=== PATIENT | male | born 1960 | race Caucasian/White ===

== ENCOUNTER → 2021-10-17 | Outpatient (CLI) | payer MEDICAID, SELFPAY ==
[2021-10-17 15:29] LABS: Absolute Neutrophil Count 3.3 X10^3/uL (2.0-7.7); Basophil# 0.03 X10^3/uL; Basophil% 0.6 % (0-1); Eosinophil# 0.15 X10^3/uL; Hematocrit 44.3 % (40-54); Lymphocyte % 22.1 % (19-41); Mean Corp Hgb Conc 33.9 g/dL (32-36); Mean Corpuscular Hgb 30.7 pg (27.0-32.0); Mean Corpuscular Volume 90.8 fL (80-94); Mean Platelet Vol. 9.7 fl (6.2-12.0); NRBC Flagged by Analyzer 0.4 % (0-5); Neutrophil # 3.28 X10^3/uL (2.7-7.7); Neutrophil % 66.1 % (47-70); POSITIVE COUNT YES; Platelet Count 79 K/mm3 (150-450); RBC Distribution Width CV 13.1 % (11.6-14.6); RBC Distribution Width SD 43.2 fl (35.1-43.9); Red Blood Count 4.88 M/mm3 (4.6-6.2)
[2021-10-17 15:37] LABS: Differential Indicated SCAN CRITERIA MET
[2021-10-17 15:44] LABS: Hemoglobin A1c 6.5 % (3.8-5.6)
[2021-10-17 16:04] LABS: ALB/GLOB Ratio 0.6 RATIO (0.9-2.4); AST(SGOT) 94 U/L (15-37); Alanine Aminotransfer ALT/SGPT 137 U/L (16-61); Albumin, Serum 2.9 g/dL (3.2-5.0); Alkaline Phosphatase 125 U/L (45-117); Anion Gap 4 (5-15); BUN 12 mg/dL (7-18); BUN/Creat Ratio 18.2 RATIO (10-20); Calcium,Total 8.7 mg/dL (8.5-10.1); Chloride 109 mmol/L (98-107); Cholesterol 114 mg/dL (200); Creatinine, Serum 0.66 mg/dL (0.70-1.30); EST Glomerular Filtration Rate 132 mL/min (>60); Est Glom Filt Rate - Afr Amer 159 mL/min (>60); Free T3 2.7 pg/mL (2.18-3.98); Globulin 4.8 g/dL (2.2-4.2); Glucose 206 mg/dL (74-106); High Density Lipoprotein 60 mg/dL; PSA,Total - Annual Screen 0.08 ng/mL (0.00-4.00); Potassium 4.1 mmol/L (3.5-5.1); Protein, Total 7.7 g/dL (6.4-8.2); Sodium Level 139 mmol/L (136-145); T4 Free Direct 1.06 ng/dL (0.76-1.46); Thyroid Stim Hormone (TSH) 5.29 uIU/mL (0.358-3.74); Triglycerides 68 mg/dL; Very Low Density Lipoprotein 14 mg/dL (5-40)
[2021-10-17 16:07] LABS: Platelet Estimate MOD DEC (ADEQ); Red Cell Morphology NORM C+C NORMAL (NORM C&C)
[2021-10-17 16:17] LABS: Hepatitis C Antibody Preliminary Reactive (Nonreactive); Vitamin D,25 Hydroxy 17.6 ng/mL
[2021-10-22 14:10] LABS: HCV Quant. RNA PCR 1010000 IU/mL (.)
[2021-10-22 16:02] LABS: HCV log 10 6.004 (.)
== END | disposition home or self-care (01) ==
PROVIDERS: Visit Provider Internal Medicine
DX: B19.20 Unspecified viral hepatitis C without hepatic coma (principal); K21.9 Gastro-esophageal reflux disease without esophagitis; F10.10 Alcohol abuse, uncomplicated; I10 Essential (primary) hypertension; Z13.220 Encounter for screening for lipoid disorders; Z13.1 Encounter for screening for diabetes mellitus; Z12.5 Encounter for screening for malignant neoplasm of prostate
CPT/HCPCS: 84153; 36415; 80053; 80061; 82306; 83036; 83735; 84439; 84443; 84481; 85025; 86803; 87522; 87902; G0103

== ENCOUNTER → 2021-12-12 | Outpatient (CLI) | payer MEDICAID, SELFPAY ==
[2021-12-12 11:16] LABS: Erythrocyte Sedimentation Rate 17 mm/hr (0-20)
[2021-12-12 11:17] LABS: Hemoglobin A1c 6.6 % (3.8-5.6)
[2021-12-12 11:20] LABS: Absolute Lymphocyte Count 0.99 X10^3/uL (0.83-4.51); Absolute Neutrophil Count 2.7 X10^3/uL (2.0-7.7); Basophil# 0.04 X10^3/uL; Eosinophil# 0.09 X10^3/uL; Eosinophils% 2.1 % (0-5); Hemoglobin 14.2 g/dL (13.0-16.5); Lymphocyte # 0.99 X10^3/ul (0.83-4.51); Lymphocyte % 23.5 % (19-41); Mean Corp Hgb Conc 34.6 g/dL (32-36); Mean Corpuscular Hgb 31.3 pg (27.0-32.0); Mean Corpuscular Volume 90.3 fL (80-94); Mean Platelet Vol. 9.7 fl (6.2-12.0); Monocyte# 0.41 X10^3/uL; Monocyte% 9.7 % (0-10); NRBC Flagged by Analyzer 0 % (0-5); Neutrophil # 2.66 X10^3/uL (2.7-7.7); Neutrophil % 63.2 % (47-70); POSITIVE COUNT YES; Platelet Count 80 K/mm3 (150-450); RBC Distribution Width CV 14.1 % (11.6-14.6); RBC Distribution Width SD 46.6 fl (35.1-43.9); Red Blood Count 4.54 M/mm3 (4.6-6.2); White Blood Count 4.2 K/mm3 (4.4-11.0)
[2021-12-12 11:27] LABS: International Normalized Ratio 1.1
[2021-12-12 11:38] LABS: ALB/GLOB Ratio 0.6 RATIO (0.9-2.4); AST(SGOT) 63 U/L (15-37); Alanine Aminotransfer ALT/SGPT 106 U/L (16-61); Albumin, Serum 2.9 g/dL (3.2-5.0); Alkaline Phosphatase 147 U/L (45-117); Anion Gap 2 (5-15); BUN 9 mg/dL (7-18); BUN/Creat Ratio 14.9 RATIO (10-20); CRP < 2.90 mg/L (0.0-3.0); Calcium,Total 8.1 mg/dL (8.5-10.1); Chloride 112 mmol/L (98-107); EST Glomerular Filtration Rate 146 mL/min (>60); Est Glom Filt Rate - Afr Amer 176 mL/min (>60); Ferritin 325 ng/mL (26-388); Globulin 4.6 g/dL (2.2-4.2); Glucose 170 mg/dL (74-106); LDH 191 U/L (87-241); Potassium 4.1 mmol/L (3.5-5.1); Protein, Total 7.5 g/dL (6.4-8.2); Sodium Level 141 mmol/L (136-145)
[2021-12-12 11:59] LABS: HIV - WCH Non-Reactive (Nonreactive)
[2021-12-13 14:08] LABS: Anti-Centromere B Ab <0.2 AI (0.0-0.9); Anti-Chromatin <0.2 AI (0.0-0.9); Anti-Jo <0.2 AI (0.0-0.9); Anti-Scleroderma-70 AB <0.2 AI (0.0-0.9); RNP Ab <0.2 AI (0.0-0.9); SJOGREN'S Anti-SS-A test < 0.2 AI (0.0-0.9); SJOGREN'S Anti-SS-B test < 0.2 AI (0.0-0.9); Smith Ab <0.2 AI (0.0-0.9)
[2021-12-13 18:33] LABS: Anti-Mitochondrial AB <20.0 Units (0.0-20.0); Anti-dsDNA Ab 3 IU/mL (0-9)
== END | disposition home or self-care (01) ==
LOC: LAB 10:23
PROVIDERS: PCP Internal Medicine; Visit Provider Internal Medicine Gastroenterology
DX: B19.20 Unspecified viral hepatitis C without hepatic coma (principal); K76.9 Liver disease, unspecified
CPT/HCPCS: 36415; 80053; 80074; 82105; 82140; 82164; 82390; 82525; 82728; 83010; 83036; 83516; 83615; 85025; 85610; 85652; 86140; 86225; 86235; 86256; 86703

== ENCOUNTER → 2021-12-19 | Outpatient (CLI) | payer MEDICAID, SELFPAY ==
--- NOTE | 2021-12-19 08:22 | US_ITS ---
STUDY: ABDOMINAL ULTRASOUND - RIGHT UPPER QUADRANT REASON FOR VISIT: Male, 61 years old Liver disease -- HEP C TECHNIQUE: Ultrasound evaluation of the right upper quadrant was performed with real-time and static parks-scale imaging. TECHNICAL QUALITY: Adequate. COMPARISON: None. FINDINGS: Liver: The liver is enlarged and measures 21.2 cm. There is increased echogenicity consistent with fatty infiltration. The bile ducts are within normal limits. There is hepatic color flow. The direction of portal flow is hepatopetal. There is no demonstrated mass lesion. Gallbladder: Normal distended gallbladder. The gallbladder wall measures 3 mm. There is a negative sonographic Argueta''s sign. There is no pericholecystic fluid. There are multiple echogenic structures within the gallbladder, consistent with multiple gallstones. Common Bile Duct (C.B.D.): The common bile duct measures 6.1 mm. Pancreas: Normal size of the head, body and tail of the pancreas. There is normal echogenicity of the pancreas. There is no demonstrated pancreatic mass or cyst. Right Kidney: Normal size of the right kidney. The right kidney measures 12.5 cm x 5.9 cm x 4.7 cm. Normal renal cortex. The right cortex measures 1.6 cm. There is no demonstrated renal mass or cyst. There is no right hydronephrosis. US/Abdomen Limited IMPRESSION: Hepatomegaly and fatty infiltration of the liver. Multiple gallstones. Electronically Signed: Davi Malik MD at 15:43 EDT ,
--- NOTE | 2021-12-19 08:22 | US_ITS ---
STUDY: ABDOMINAL ULTRASOUND - ELASTOGRAPHY REASON FOR VISIT: Male, 61 years old. Hepatitis C. TECHNIQUE: Liver stiffness measurements were obtained on a [employer] RS 85 ultrasound machine using a CA 1-7 probe following the SRU guidelines. 3 measurements were obtained using a 2-D-SWE method. TheIQR/M was 22% suggesting a quality data set. TECHNICAL QUALITY: Adequate. COMPARISON: Comparison is made with prior study done earlier in the day. FINDINGS: Liver: Hepatomegaly and fatty infiltration of the liver. Median liver stiffness measured 13.5 kPa. US/Elastography Parenchyma/Organ IMPRESSION: Liver stiffness measures 13.5 kPa compatible with F3-F4 (Moderate to severe liver fibrosis) Metavir score. Electronically Signed: Davi Malik MD at 15:44 EDT ,
== END | disposition home or self-care (01) ==
LOC: US 08:21
PROVIDERS: PCP Internal Medicine; Referring Provider Internal Medicine Gastroenterology; Visit Provider Internal Medicine Gastroenterology
DX: K76.9 Liver disease, unspecified (principal); B19.20 Unspecified viral hepatitis C without hepatic coma
CPT/HCPCS: 76705; 76981

== ENCOUNTER → 2021-12-20 | Outpatient (CLI) | payer MEDICAID, SELFPAY ==
[2021-12-20] VITALS (11 sets, daily range): BP systolic 122–160; BP diastolic 53–104; PULSE 75–87; RESP 18–28; TEMP 36.6; O2SAT 92–98; BMI 34.4
--- NOTE | 2021-12-20 | LIVB_PTH ---
PATIENT: JOHNNIE PARRA LOC: [place] U#:[id number] AGE/SX: 61/M ROOM: RE12/20/[address]: Dr. Chris Hoskins DO : 1960 BED: DIS: 12/20/2021 SPEC #: [id number] RECD: 12/20/21 10:00 STATUS: SHAWN RECasper #: [id number] JOSI: 12/20/21 00:[address]: Chris Hoskins DEPT: SURGICAL PATHOLOGY RECD BY: Michelle Dumont ENTERED: 12/20/21 13:25 SP TYPE: LIVER BX DEMARIO DR: Dr. aSrai Burton MD Tissues: Liver, NOS Procedures: PAS with Diastase (control) Trichrome (control) Special Stain Group II PAS Stain (control) Surgery Specimen Level V Retic (control) Iron Stain (control) HEADER OPERATION: Liver biopsy PRE-OP DIAGNOSIS: Liver disease TISSUE SUBMITTED: Liver 18-gauge x3 MICROSCOPIC DIAGNOSIS Liver, CT-guided core biopsy: Consistent with cirrhosis. See microscopic description and comment. Maximiliano 12/21/2021 COMMENT Correlation with clinical, radiologic, laboratory findings and appropriate follow up are necessary. MICROSCOPIC DESCRIPTION Slides are reviewed. The specimen shows liver parenchymal tissue with distortion of normal lobular architecture into multiple nodules. Hepatocytes in the nodules show macro- and microvesicular steatosis. Fibrous septae in between the hepatocyte nodules show chronic inflammation and ductular proliferation. Iron stain shows absent iron. Trichrome and reticulin stains highlights the fibrous septae in between the hepatocyte nodules. PAS stain with and without diastase do not show any abnormal accumulation of protein. All stains are performed with appropriate matched controls. GROSS DESCRIPTION Received in fixative is one container labeled with the patient's name and designated liver. The specimen consists of three elongated fragments of griffin soft tissue measuring 0.5 to 1.2 cm in length and 0.1 cm in diameter. The specimen is totally submitted in one cassette. / ABHI:kalin 12/20/2021 TC:5 CPT: 12580, 50657 x5
--- NOTE | 2021-12-20 07:23 | CT_ITS ---
PROCEDURE: CT DIRECTED CORE LIVER BIOPSY INDICATION: Male, 61 years old. Liver disease staging PHYSICIAN: Dr. OMAR Santos CONSENT: Written informed consent was obtained having explained the risks, benefits and alternatives in detail with the patient who accepted the risks and agreed to proceed. Laboratory review and clinical assessment was performed. RADIATION DOSAGE (If Supplied By Facility): CTDIvol = ( 26 ) mGy, DLP = ( 1466.35 ) mGycm Individualized dose optimization techniques were used for this CT. TECHNIQUE: Using CT image guidance with image documentation, a suitable location in the right lobe of the liver was identified. Using an anterior approach, puncture of the liver was uneventful with an 18-gauge core needle system. 3, 18-gauge core samples were obtained, and submitted in formalin to the pathologist for further assessment. Followup CT scan revealed no distinct sequelae. CT/Biopsy/Inj or Needle Placement IMPRESSION: 1. CT directed core needle biopsy of the liver, using CT image guidance with image documentation as described. Electronically Signed: Davi Malik MD at 9:57 EDT ,
[2021-12-20] MEDS: 0.9% Normal Saline 250 ML IV.SOLN. (09:00)
[2021-12-20] MEDS: Lidocaine 2% (20 ml mdv) 20 ML Vial INFILT (09:10)
== END | disposition home or self-care (01) ==
LOC: CT 07:21
PROVIDERS: PCP Internal Medicine; Referring Provider Internal Medicine Gastroenterology; Visit Provider Internal Medicine Gastroenterology
DX: K70.30 Alcoholic cirrhosis of liver without ascites (principal); F10.20 Alcohol dependence, uncomplicated; B18.2 Chronic viral hepatitis C; K76.0 Fatty (change of) liver, not elsewhere classified; E66.9 Obesity, unspecified; Z68.34 Body mass index [BMI] 34.0-34.9, adult; F17.210 Nicotine dependence, cigarettes, uncomplicated
CPT/HCPCS: 47000; 77012; 88307; 88313; J7050

== ENCOUNTER 2022-02-20 12:30 | Outpatient (RCR) | payer MEDICAID, SELFPAY ==
--- NOTE | 2022-01-31 13:05 | HP.PTEVAL_ITS ---
Patient's Visit Information JOHNNIE PARRA is a 61 year old M referred to Physical Therapy by Dr. Sarai Burton MD with a diagnosis of R hip pain. Date of Evaluation: 01/31/22 Physical Therapist: Vince Benavides, PT, ATC - Visit Plan Frequency: 2-3x /Week Duration: 4-6 Weeks Plan: R hip DTR, R hip flexor stretching, bike, and HEP - Subjective Pt reports R hip has been intermittently sore for over 1 1/2 years. 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 Pt reports his pain first started when he would walk a lot, but would always go away after a few days. Pt reports this episode has been present for approximately one month. Pt notes the pain is located on the front of his hip. Pt reports his hip doesnt lock up, click, or give out on him. Pt denies tingling or numbness in R LE. Pt denies sleep difficulty at this time. Pt reports his major goal is to be able to get out and walk more to loosen it up. Pt has had no Dx tests at this time. 0/10 pain at rest, 9/10 pain at worst (when he walks a lot). - Pain R hip pain Pain Intensity (Out of 10): 0 Pain Intensity Range: 9 - Objective Neuro: B LE sensation is WNL to light touch. B patellar tendon reflex= 2/3. Palpation: Pt reports pain with palpation to illiopsoas muscle belly. ROM: B LE are WNL when compared bilaterally. MMT: B LE's are 5/5 when compared bilaterally. Flexibility: Pt has significant tightness throughout calves, HS's, and hip flexor muscle regions. special tests: all negative at this time - Balance/Special Test Scores Lower Extremity Functional Score: 45 - Goals Goal 1:: Decrease R hip pain x 50% to aid with ambulation Goal Time Frame: 4-6 Weeks Goal 2:: Increase R LE flexibility x 1 grade to aid with decreasing pain Goal Time Frame: 4-6 Weeks Goal 3:: Pt will be able to ambulate 1000 feet without limitation to aid with community ambulation Goal Time Frame: 4-6 Weeks Goal 4:: I with HEP Goal Time Frame: 4-6 Weeks - Rehabilitation Potential Physical Therapy Diagnosis: Pt has R hip pain, limited R LE flexibility, and difficulty with ambulation secondary to R hip flexor tightness Rehabilitation Potential: Good - Anticipated Interventions Patient/Client Instruction: Educate patient on: Condition, Plan of Care For the Purpose of:: To improve self management Therapeutic Exercise to Include: Endurance training, Flexibilty training, Passive ROM, Active ROM For the Purpose of:: To decrease pain, To increase ROM, To improve muscle per formance and motor function Cryotherapy (ice pack, ice massage): Yes For the Purpose of:: To decrease pain Thank you for the opportunity to evaluate your patient. For Medicare and Medicare HMO plans, please review the plan of care and approve it. It will need to be FAXED BACK to us at [phone] for Medicare purposes. For Medicare only, by signing this I certify the plan of care. Please let me know if there are questions or concerns regarding this plan of care. Physician Signature: Date:
== END 2022-02-20 19:00 | disposition home or self-care (01) ==
LOC: PT 12:30
PROVIDERS: PCP Internal Medicine; Referring Provider Internal Medicine; Visit Provider Internal Medicine
DX: M76.01 Gluteal tendinitis, right hip (principal)
CPT/HCPCS: 97110; 97161

== ENCOUNTER 2022-02-26 05:21 | Day surgery (SDC) | payer MEDICAID, SELFPAY ==
[2022-02-26] VITALS (7 sets, daily range): BP systolic 102–155; BP diastolic 60–86; PULSE 78–91; RESP 16–18; TEMP 36.2–36.4; O2SAT 92–96; BMI 42.8
[2022-02-26] MEDS: Lactated Ringers 1,000 ML 15 ML IV (06:10)
--- NOTE | 2022-02-26 06:21 | HP.PCM_ITS ---
History and Physical Date of Admission: 02/26/22 JOHNNIE PARRA, is a 61 M who presents to the office today for?Initial consult. Johnnie established with this clinic 12.12.21 with referral from his PCP for liver disease. He was infected with HCV 30+ years prior with remote establishment with hepatology around 2006 without treatment. He did have some IV drug use around age 20, no blood transfusions, out of country living or tattoos. He is undergoing court mandated treatment for alcohol abuse though he continues to drink alcohol sporadically. He is attempted to get Antabuse next week and is undergoing counseling; vivitrol was ineffective and caused HTN.? Has been drinking excessively for at least the last five years. FH pancreatic cancer, father resulting in at age 74. Biochemical workup Fibrosure results indicate cirrhosis. AST 94/ALT 137/ Alk Phos 125. Albumin 2.9. Hgb A1c 6.5 (PCP addressed with low fats/carbohydrate foods). HCV QT 1010,000 HCV log10 6.004 HCV Qjwcznst1g Exam Const General: cooperative and healthy appearing Resp Effort & Inspection: normal respiratory effort Cardio Rate: regular rate Skin General: no rashes or lesions noted Neuro General: patient alert and CN's II-XI intact bilaterally Extrem General: full ROM and capillary refill normal Other: Pain to palpation over the left fifth metatarsal with no ecchymosis or swelling. Psych Appearance: grossly normal Mental Status: mental status grossly normal Quality Reporting Tobacco Screening ([facility]) Smoking Status: Current every day smoker Assessment and Plan Assessment and Plan (1) Hepatitis C: ?Status:?Acute ?Plan: Patient says that he knows that he is a genotype 1b.? His viral load revealed an HCV PCR RNA quant of 1 million copies.? He does not have an alpha-fetoprotein which we need to draw.? We will also I will need to check and see if he has any cirrhosis as that would significantly change his treatment duration and the medicine that we can give to ensure proper hepatitis C clearance.? He was explained that since he is actively drinking and it can affect his clearance of hepatitis C virus.? We encouraged him not to drink any alcohol if possible.? He says he is working with his primary care doctor and in counseling regarding his alcoholism. (2) Liver disease: ?Status:?Acute ?Plan: He has liver disease secondary to chronic hepatitis C, alcohol and possibly fatty liver disease for obesity and poor diet.? He is not had any episodes ascites, jaundice or encephalopathy.? There was some question to whether he has cirrhosis.? At this time I am waiting for FibroScan and liver biopsy.? By his biochemical analysis his FIB-4 score is high enough for cirrhosis which is not a good sign.? I am not recommending any diuretic therapy at this time, beta- deven therapy at this time or anytime anti ammonia development therapy until I have Blood work back and imaging. (3) Alcohol abuse: ?Status:?Chronic ?Plan: Participating in counseling services. Actively seeking adjunct therapy with anatbuse, will be seeing provider on Friday for evaluation. (4) he will also undergo a screening colonoscopy and screening for varices as he has not had those screening procedures performed in the past. He was explained alternatives, risk, benefits including not withstanding bleeding, infection, sepsis, perforation, need for emergent urgent . Have an ASA of 3. I have re-examined the patient. There are no clinical changes since date of exam.
--- NOTE | 2022-02-26 06:30 | IMM_PTH ---
PATIENT: JOHNNIE PARRA LOC: [place] U#:[id number] AGE/SX: 61/M ROOM: RE02/26/[address]: Dr. Chris Hoskins DO : 1960 BED: DIS: 02/26/2022 SPEC #: [id number] RECD: 02/27/22 09:53 STATUS: SHAWN REQ #: [id number] JOSI: 02/26/22 06:[address]: Chris Hoskins DEPT: IMMUNOHISTOCHEMISTRY RECD BY: Kiah Mccormack ENTERED: 02/27/22 09:53 SP TYPE: IMMUNO OTHR DR: Dr. Sarai Burton MD Tissues: A - Stomach, NOS B - Esophageal mucous membrane Procedures: H Pylori (initial) P53 (initial) KI-67 (add) PHYSICIAN & INSTITUTION [place] [phone] SPECIMEN INFORMATION: Tissue Source: A ? Gastric ulcer biopsy, B ? Distal esophagus biopsy Clinical Info: Hepatitis C, liver disease Specimen Number: [id number] A & B CPT code: 40482 x2, 98352 METHODOLOGY: Deparaffinized sections of prefer/formalin-fixed tissue or PAP/DQ stained slides are incubated with monoclonal/polyclonal antibodies/oligonucleotide probes. Localization is made via biotin free immunoperoxidase method. Appropriate controls are performed and reacted as expected. Results on target cell population are indicated in the following table: RESULTS: ANTIBODY / CLONE RESULT Block A H Pylori (polyclonal) negative Block B P53 (DO-7) negative Ki-67 (30-9) positive, very low These tests were developed and their performance characteristics determined by [facility]. They may not have been cleared or approved by the U.S. Food and Drug Administration. The FDA has determined that such clearance or approval is not necessary. The above immunohistochemical/dualISH markers are ordered and reviewed by the Pathologist. INTERPRETATION: A. Gastric ulcer, biopsy: Negative for Helicobacter pylori organisms. B. Distal esophagus, biopsy: Negative for dysplasia. ABHI:kalin 03/01/2022
--- NOTE | 2022-02-26 06:30 | COLBX_PTH ---
PATIENT: JOHNNIE PARRA LOC: [place] U#:[id number] AGE/SX: 61/M ROOM: RE02/26/[address]: Dr. Chris Hoskins DO : 1960 BED: DIS: 02/26/2022 SPEC #: [id number] RECD: 02/26/22 15:07 STATUS: SHAWN DECKER #: [id number] JOSI: 02/26/22 06:[address]: Chris Hoskins DEPT: SURGICAL PATHOLOGY RECD BY: Michelle Dumont ENTERED: 02/27/22 08:27 SP TYPE: COLON BX DEMARIO DR: Dr. Sarai Burton MD Tissues: A - Gastric mucous membrane B - Esophagus, NOS C - Ascending colon D - Sigmoid colon biopsy Procedures: Special Stain Group II Surgery Specimen Level IV Alcian Blue/PAS (control) HEADER OPERATION: Colonoscopy, EGD ([facility]), biopsy PRE-OP DIAGNOSIS: Hepatitis C, liver disease TISSUE SUBMITTED: A ? Gastric ulcer biopsy, B ? Distal esophagus biopsy, C ? Ascending polyp x2, D ? Sigmoid polyp MICROSCOPIC DIAGNOSIS A. Gastric ulcer, biopsy: Mild gastritis. See microscopic description and comment. B. 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 Chronic inflammation. Negative for dysplasia. See comment. C. Ascending colon polyp x2, biopsy: Fragments of tubular adenoma. Hyperplastic polyp. D. Sigmoid polyp, biopsy: Tubular adenoma. SJ:kalin 02/28/2022 COMMENT A. The results of immunohistochemistry for Helicobacter pylori will be reported separately ([id number]). B. Immunohistochemistry ([id number]) for P53 and Ki-67 will be performed and results will be reported separately. Alcian blue/PAS stain with matched control is used in the evaluation of the specimen. MICROSCOPIC DESCRIPTION Slides are reviewed. A. The specimen shows fragments of gastric mucosa with chronic inflammatory cell infiltrates in the lamina propria consisting of lymphocytes and plasma cells, consistent with mild chronic gastritis. GROSS DESCRIPTION A - Received in fixative is one container labeled with the patient's name and designated gastric ulcer biopsy. The specimen consists of two irregular fragments of light griffin soft tissue that in aggregate measure 0.6 x 0.3 x 0.1 cm. The specimen is totally submitted in one cassette. B - Received in fixative is one container labeled with the patient's name and designated distal esophagus biopsy. The specimen consists of two irregular fragments of light griffin soft tissue that in aggregate measure 0.6 x 0.3 x 0.1 cm. The specimen is totally submitted in one cassette. C - Received in fixative is one container labeled with the patient's name and designated ascending polyp x2. The specimen consists of multiple irregular fragments of light griffin soft tissue that in aggregate measure 1.5 x 0.5 x 0.2 cm. The specimen is totally submitted in one cassette. D - Received in fixative is one container labeled with the patient's name and designated sigmoid polyp. The specimen consists of a pink, congested polyp measuring 0.8 x 0.7 x 0.5 cm. The specimen is bisected and submitted entirely in one cassette. / SJ:rg 02/27/2022 TC:1 CPT: 62466 x4, 87955
--- NOTE | 2022-02-26 07:13 | OP.CCLET_ITS ---
03/29/2022 Sarai Burton [facility] [address] [place] [address] Re : Upper GI endoscopy procedure for Darrin Garvin Dear Dr. Burton This procedure was performed on Saturday, February 26, 2022. My impressions and recommendations are as follows: Impressions : - Z-line irregular, 40 cm from the incisors. Biopsied. - Small hiatal hernia. - Portal hypertensive gastropathy. - Oozing gastric ulcer with a visible vessel. Treated with bipolar cautery. - Non-bleeding gastric ulcer with no stigmata of bleeding. Biopsied. - Normal first portion of the duodenum. Recommendations : - Discharge patient to home. - Resume previous diet. - Continue present medications. My findings are described in the full procedure note, which is enclosed. If I can be of further assistance, please feel free to contact me at . Sincerely, Chris Friend, 02/26/2022 7:12:47 AM This report has been signed electronically.
--- NOTE | 2022-02-26 07:13 | OP.EGD_ITS ---
Patient Name: Darrin Garvin Procedure Date: 02/26/2022 6:13 AM Date of : 1960 Age: 61 Procedure: Upper GI endoscopy Indications: Epigastric abdominal pain, Cirrhosis with suspected esophageal varices Providers: Chris Hoskins DO Medicines: Monitored Anesthesia Care Patient Profile: This is a 61 year old male. Refer to note in patient chart for documentation of history and physical. Patient has symptoms of chronic abdominal distention and chronic heartburn. Complications: No immediate complications. Procedure: Pre-Anesthesia Assessment: - Prior to the procedure, a History and Physical was performed, and patient medications and allergies were reviewed. The risks and benefits of the procedure and the sedation options and risks were discussed with the patient. All questions were answered and informed consent was obtained. Patient identification and proposed procedure were verified by the physician in the pre-procedure area. Mental Status Examination: alert and oriented. Airway Examination: normal oropharyngeal airway and neck mobility. Respiratory Examination: clear to auscultation. CV Examination: normal. Prophylactic Antibiotics: The patient does not require prophylactic antibiotics. Prior Anticoagulants: The patient has taken no previous anticoagulant or antiplatelet agents. ASA Grade Assessment: II - A patient with mild systemic disease. After reviewing the risks and benefits, the patient was deemed in satisfactory condition to undergo the procedure. The anesthesia plan was to use moderate sedation / analgesia (conscious sedation). Immediately prior to administration of medications, the patient was re-assessed for adequacy to receive sedatives. The heart rate, respiratory rate, oxygen saturations, blood pressure, adequacy of pulmonary ventilation, and response to care were monitored throughout the procedure. The physical status of the patient was re-assessed after the procedure. After obtaining informed consent, the endoscope was passed under direct vision. Throughout the procedure, the patient's blood pressure, pulse, and oxygen saturations were monitored continuously. The pediatric colonoscope was introduced through the mouth, and advanced to the second part of duodenum. The upper GI endoscopy was accomplished without difficulty. The patient tolerated the procedure well. Scope In: 6:37:38 AM Scope Out: 6:44:48 AM Total Procedure Duration Time 0 hours 7 minutes 10 seconds Findings: The Z-line was irregular and was found 40 cm from the incisors. Biopsies were taken with a cold forceps for histology. Verification of patient identification for the specimen was done. Estimated blood loss was minimal. A small hiatal hernia was present. Mild portal hypertensive gastropathy was found in the cardia and in the gastric fundus. One oozing cratered gastric ulcer with a visible vessel was found in the gastric body. The lesion was 6 mm in largest dimension. Coagulation for hemostasis using bipolar probe was successful. Estimated blood loss was minimal. One non-bleeding cratered gastric ulcer with no stigmata of bleeding was found on the greater curvature of the stomach. The lesion was 6 mm in largest dimension. Biopsies were taken with a cold forceps for histology. Verification of patient identification for the specimen was done. This was biopsied with a cold forceps for histology. Verification of patient identification for the specimen was done. Estimated blood loss was minimal. The first portion of the duodenum was normal. Impression: - Z-line irregular, 40 cm from the incisors. Biopsied. - Small hiatal hernia. - Portal hypertensive gastropathy. - Oozing gastric ulcer with a visible vessel. Treated with bipolar cautery. - Non-bleeding gastric ulcer with no stigmata of bleeding. Biopsied. - Normal first portion of the duodenum. Recommendation: - Discharge patient to home. - Resume previous diet. - Continue present medications. Procedure Code(s): --- Professional --- 88955, 59, Esophagogastroduodenoscopy, flexible, transoral; with control of bleeding, any method 43753, 51, Esophagogastroduodenoscopy, flexible, transoral; with biopsy, single or multiple CPT copyright 2017 [employer]. All rights reserved. The codes documented in this report are preliminary and upon ad taker review may be revised to meet current compliance requirements. Chris Hoskins DO 02/26/2022 7:12:47 AM This report has been signed electronically. Number of Addenda: 1 Note Initiated On: 02/26/2022 6:13 AM Addendum Number: 1 Addendum Date: 03/29/2022 6:20:14 AM MAC was used as sedation for this procedure. Chris Hoskins DO 03/29/2022 6:20:21 AM This report has been signed electronically.
--- NOTE | 2022-02-26 07:17 | OP.COLON_ITS ---
Patient Name: Darrin Garvin Procedure Date: 02/26/2022 6:45 AM Date of : 1960 Age: 61 Procedure: Colonoscopy Indications: Screening for colorectal malignant neoplasm Providers: Chris Hoskins DO Medicines: Monitored Anesthesia Care Patient Profile: This is a 61 year old male. Refer to note in patient chart for documentation of history and physical. Patient has symptoms of chronic abdominal distention and chronic heartburn. Last Colonoscopy: date unknown. Unable to locate last colonoscopy report. Complications: No immediate complications. Procedure: Pre-Anesthesia Assessment: - Prior to the procedure, a History and Physical was performed, and patient medications and allergies were reviewed. The risks and benefits of the procedure and the sedation options and risks were discussed with the patient. All questions were answered and informed consent was obtained. Patient identification and proposed procedure were verified by the physician in the pre-procedure area. Mental Status Examination: alert and oriented. Airway Examination: normal oropharyngeal airway and neck mobility. Respiratory Examination: clear to auscultation. CV Examination: normal. Prophylactic Antibiotics: The patient does not require prophylactic antibiotics. Prior Anticoagulants: The patient has taken no previous anticoagulant or antiplatelet agents. ASA Grade Assessment: II - A patient with mild systemic disease. After reviewing the risks and benefits, the patient was deemed in satisfactory condition to undergo the procedure. The anesthesia plan was to use moderate sedation / analgesia (conscious sedation). Immediately prior to administration of medications, the patient was re-assessed for adequacy to receive sedatives. The heart rate, respiratory rate, oxygen saturations, blood pressure, adequacy of pulmonary ventilation, and response to care were monitored throughout the procedure. The physical status of the patient was re-assessed after the procedure. After I obtained informed consent, the scope was passed under direct vision. Throughout the procedure, the patient's blood pressure, pulse, and oxygen saturations were monitored continuously. The colonoscope was introduced through the anus and advanced to the cecum, identified by appendiceal orifice and ileocecal valve. The ileocecal valve, appendiceal orifice, and rectum were photographed. Scope In: 6:46:50 AM Scope Withdrawal Time 0 hours 14 minutes 34 seconds Scope Out: 7:03:34 AM Total Procedure Duration Time 0 hours 16 minutes 44 seconds Findings: The perianal and digital rectal examinations were normal. Multiple small and large-mouthed diverticula were found in the recto-sigmoid colon, sigmoid colon and descending colon. Three sessile polyps were found in the sigmoid colon and ascending colon. The polyps were 1 to 2 mm in size. These polyps were removed with a hot snare. Resection and retrieval were complete. Verification of patient identification for the specimen was done. Estimated blood loss was minimal. Impression: - Diverticulosis in the recto-sigmoid colon, in the sigmoid colon and in the descending colon. - Three 1 to 2 mm polyps in the sigmoid colon and in the ascending colon, removed with a hot snare. Resected and retrieved. Recommendation: - Repeat colonoscopy in 3 years for surveillance. - Return to GI office. - Continue present medications. - No aspirin, ibuprofen, naproxen, or other non-steroidal anti-inflammatory drugs for 7 days. Procedure Code(s): --- Professional --- 94777, Colonoscopy, flexible; with removal of tumor(s), polyp(s), or other lesion(s) by snare technique CPT copyright 2017 [employer]. All rights reserved. The codes documented in this report are preliminary and upon communications associate review may be revised to meet current compliance requirements. Chris Hsokins DO 02/26/2022 7:17:23 AM This report has been signed electronically. Number of Addenda: 1 Note Initiated On: 02/26/2022 6:45 AM Addendum Number: 1 Addendum Date: 03/29/2022 6:20:28 AM MAC was used as sedation for this procedure. Chris Hoskins DO 03/29/2022 6:20:32 AM This report has been signed electronically.
--- NOTE | 2022-02-26 07:18 | OP.CCLET_ITS ---
03/29/2022 Sarai Burton [facility] [address] [place] [address] Re : Colonoscopy procedure for Darrin Garvin Dear Dr. Burton This procedure was performed on Saturday, February 26, 2022. My impressions and recommendations are as follows: Impressions : - Diverticulosis in the recto-sigmoid colon, in the sigmoid colon and in the descending colon. - Three 1 to 2 mm polyps in the sigmoid colon and in the ascending colon, removed with a hot snare. Resected and retrieved. Recommendations : - Repeat colonoscopy in 3 years for surveillance. - Return to GI office. - Continue present medications. - No aspirin, ibuprofen, naproxen, or other non-steroidal anti-inflammatory drugs for 7 days. My findings are described in the full procedure note, which is enclosed. If I can be of further assistance, please feel free to contact me at . Sincerely, Chris Friend, 02/26/2022 7:17:23 AM This report has been signed electronically.
== END 2022-02-26 08:11 | disposition home or self-care (01) ==
LOC: EN 05:22 → AC 05:23
PROVIDERS: PCP Internal Medicine; Referring Provider Internal Medicine; Visit Provider Internal Medicine Gastroenterology
PROC: 0DJD8ZZ Inspection of Lower Intestinal Tract, Via Natural or Artificial Opening Endoscopic (ICD-10-PCS; CPT 45378; principal; 2022-02-26 06:25)
DX: D12.2 Benign neoplasm of ascending colon (principal); K76.6 Portal hypertension; K74.60 Unspecified cirrhosis of liver; B18.2 Chronic viral hepatitis C; D12.5 Benign neoplasm of sigmoid colon; K22.70 Barrett's esophagus without dysplasia; K29.50 Unspecified chronic gastritis without bleeding; K44.9 Diaphragmatic hernia without obstruction or gangrene; K31.89 Other diseases of stomach and duodenum; F17.200 Nicotine dependence, unspecified, uncomplicated; K57.30 Diverticulosis of large intestine without perforation or abscess without bleeding; K25.9 Gastric ulcer, unspecified as acute or chronic, without hemorrhage or perforation
CPT/HCPCS: 43239; 45385; 43255; 88305; 88313; 88341; 88342; J7120; J2405

== ENCOUNTER → 2022-03-06 | Outpatient (CLI) | payer MEDICAID, SELFPAY ==
[2022-03-06 10:25] LABS: Erythrocyte Sedimentation Rate 14 mm/hr (0-20)
[2022-03-06 10:33] LABS: International Normalized Ratio 1.2
[2022-03-06 10:59] LABS: ALB/GLOB Ratio 0.6 RATIO (0.9-2.4); AST(SGOT) 85 U/L (15-37); Alanine Aminotransfer ALT/SGPT 119 U/L (16-61); Alkaline Phosphatase 141 U/L (45-117); Anion Gap 6 (5-15); BUN 8 mg/dL (7-18); BUN/Creat Ratio 9.2 RATIO (10-20); CRP < 2.90 mg/L (0.0-3.0); Calcium,Total 9.1 mg/dL (8.5-10.1); Chloride 105 mmol/L (98-107); Creatinine, Serum 0.87 mg/dL (0.70-1.30); EST Glomerular Filtration Rate 96 mL/min (>60); Est Glom Filt Rate - Afr Amer 116 mL/min (>60); Globulin 5.1 g/dL (2.2-4.2); Glucose 252 mg/dL (74-106); LDH 240 U/L (87-241); Protein, Total 8.1 g/dL (6.4-8.2); Sodium Level 139 mmol/L (136-145)
== END | disposition home or self-care (01) ==
LOC: LAB 10:02
PROVIDERS: PCP Internal Medicine; Referring Provider Internal Medicine Gastroenterology; Visit Provider Internal Medicine Gastroenterology
DX: K74.60 Unspecified cirrhosis of liver (principal)
CPT/HCPCS: 36415; 80053; 82140; 83615; 85610; 85652; 86140

== ENCOUNTER → 2022-05-06 | Outpatient (CLI) | payer MEDICAID, SELFPAY ==
[2022-05-06 13:45] LABS: Absolute Lymphocyte Count 1.39 X10^3/uL (0.83-4.51); Absolute Neutrophil Count 3.6 X10^3/uL (2.0-7.7); Basophil# 0.03 X10^3/uL; Basophil% 0.5 % (0-1); Eosinophil# 0.15 X10^3/uL; Eosinophils% 2.7 % (0-5); Hematocrit 43.7 % (40-54); Lymphocyte # 1.39 X10^3/ul (0.83-4.51); Lymphocyte % 24.9 % (19-41); Mean Corp Hgb Conc 34.3 g/dL (32-36); Mean Corpuscular Hgb 31.1 pg (27.0-32.0); Mean Corpuscular Volume 90.5 fL (80-94); Mean Platelet Vol. 9.7 fl (6.2-12.0); Monocyte# 0.39 X10^3/uL; NRBC Flagged by Analyzer 0 % (0-5); Neutrophil % 64.5 % (47-70); POSITIVE COUNT YES; Platelet Count 79 K/mm3 (150-450); RBC Distribution Width CV 13.2 % (11.6-14.6); RBC Distribution Width SD 42.9 fl (35.1-43.9); Red Blood Count 4.83 M/mm3 (4.6-6.2); White Blood Count 5.6 K/mm3 (4.4-11.0)
[2022-05-06 14:12] LABS: ALB/GLOB Ratio 0.6 RATIO (0.9-2.4); AST(SGOT) 69 U/L (15-37); Alanine Aminotransfer ALT/SGPT 92 U/L (16-61); Albumin, Serum 3.1 g/dL (3.2-5.0); Alkaline Phosphatase 102 U/L (45-117); Anion Gap 4 (5-15); BUN 8 mg/dL (7-18); Calcium,Total 8.5 mg/dL (8.5-10.1); Chloride 105 mmol/L (98-107); EST Glomerular Filtration Rate 105 mL/min (>60); Est Glom Filt Rate - Afr Amer 127 mL/min (>60); Globulin 4.8 g/dL (2.2-4.2); Glucose 255 mg/dL (74-106); Protein, Total 7.9 g/dL (6.4-8.2); Sodium Level 138 mmol/L (136-145)
[2022-05-08 20:07] LABS: HCV Quant. RNA PCR HCV Not Detected IU/mL (.)
== END | disposition home or self-care (01) ==
LOC: LAB 13:06
PROVIDERS: PCP Internal Medicine; Referring Provider Internal Medicine Gastroenterology; Visit Provider Internal Medicine Gastroenterology
DX: B19.20 Unspecified viral hepatitis C without hepatic coma (principal)
CPT/HCPCS: 36415; 80053; 85025; 87522

== ENCOUNTER 2022-06-05 07:59 | Outpatient (RCR) | payer MEDICAID, SELFPAY | END 2022-06-22 23:59 | LOC: NS 07:59 | PROVIDERS: PCP Internal Medicine; Visit Provider Internal Medicine Gastroenterology | DX: R73.09 Other abnormal glucose (principal) | CPT/HCPCS: 97802 ==

== ENCOUNTER 2022-06-26 07:24 | Emergency (ER) | payer MEDICAID, SELFPAY ==
[2022-06-26 07:25] VITALS: BP 173/104; PULSE 110; RESP 20; TEMP 36.6; O2SAT 95; BMI 39.9
--- NOTE | 2022-06-26 07:54 | CT_ITS ---
HISTORY: diffuse abdominal pain, tenderness at supraumbilical hernia. TECHNIQUE: Helically acquired images were obtained of the abdomen and pelvis after the intravenous administration of 100mL Isovue-370. A radiation dose optimization technique was used for this scan. 501 images. COMPARISON: US 12/19/2021. FINDINGS: LOWER CHEST: Lung bases clear. BOWEL: Bowel nondilated. Small bowel wall thickening in the right lower quadrant. Small air-containing jugular structure in the right lower quadrant may represent a nondilated appendix. Colonic diverticulosis without focal inflammatory change observed. PERITONEUM: Mild mesenteric edema in the right lower quadrant without significant ascites. LIVER: No enhancing mass. Nodular and heterogeneous with varices noted. GALLBLADDER/BILIARY TREE: Multiple calcified gallstones in the distended gallbladder with a mildly prominent gallbladder wall. SPLEEN: Homogeneous and 16.8 cm in length. PANCREAS/KIDNEYS/ADRENAL GLANDS: Unremarkable. VESSELS: No abdominal aortic aneurysm. Mild atherosclerosis. PELVIC ORGANS: Unremarkable. ABDOMINAL WALL: Small fat-containing umbilical and inguinal hernias. BONES: Mild degenerative change. CT/Abdomen/Pelvis W IV Cont ONLY IMPRESSION: Cholelithiasis with gallbladder distention and a mildly prominent gallbladder wall. Consider correlation with ultrasound or scintigraphy to assess for acute cholecystitis. Cirrhotic liver and splenomegaly with varices. Right lower quadrant mesenteric edema with small bowel wall thickening suggesting mild enteritis. Colonic diverticulosis without acute diverticulitis. Electronically Signed: Naida Morrison MD at 9:28 EST ,
--- NOTE | 2022-06-26 08:11 | ED.VIS.GI ---
HPI HPI - GI History of Present Illness Chief Complaint: Abd Pain Informant: patient Abdominal Pain/Flank Pain Onset: Hours (20) Context: Gradual Onset Timing: Continuous Quality: Aching Location: Diffuse (Across middle, supraumbilical) Current Severity: Moderate Maximum Severity: Moderate Worsened by: Nothing Relieved by: Nothing Nausea/Vomiting/Emesis GI Symptom: Positive for Nausea; Negative for Vomiting Diarrhea/Melena/Hematochezia GI Symptom: Negative for Diarrhea, Melena or Hematochezia Associated Symptoms Associated Symptoms: Positive for - (Anorexia); Negative for Dysuria, Frequency, Hematuria or Urgency Narrative Narrative: Patient has been having abdominal pain for almost an entire day, states he has never had this before. He has a known hernia supraumbilical, states it is sore there but it is hurting throughout his abdomen, and into his sides. Denies any distention. Some nausea at the beginning but none now and no vomiting. No fevers or chills. No history of any abdominal surgeries or other GI problems that he knows of. PFSH PFSH Medical History Alcohol abuse Anemia Cirrhosis Fatty liver GERD (gastroesophageal reflux disease) Hepatitis Hepatitis C History of fracture of arm History of pain when walking History of stress test Smoker Wears contact lenses Wears glasses Home Medications dicyclomine 10 mg capsule 20 mg PO Q6H PRN PRN abdominal discomfort #20 CAPSULES 06/26/22 [Rx Last Taken Unknown] famotidine 40 mg tablet (Pepcid) 40 mg PO DAILY #30 tabs 06/26/22 [Rx Last Taken Unknown] sofosbuvir 400 mg-velpatasvir 100 mg tablet 1 tab PO DAILY HEPATITIS C 06/26/22 [History Last Taken 06/25/22] Allergy/AdvReac Type Severity Reaction Status Date / Time No Known Allergies Allergy Verified 06/26/22 07:25 Family History Father Pancreatic cancer Heart disease Social History Smoking Status: Current every day smoker tobacco type: cigarettes alcohol intake: current alcohol intake frequency: 0-2 drinks per day substance use type: does not use what type of physical activity do you participate in: none ROS ROS ED Constitutional Constitutional ED: Denies chills or fever(s) Eyes Eyes: Denies change in vision or diplopia ENT ENT ED: Denies rhinorrhea or sore throat Cardiovascular Cardiovascular: Denies chest pain or palpitations Respiratory/Chest Respiratory/Chest: Denies cough or dyspnea Gastrointestinal Gastrointestinal: Reports as per HPI, abdominal pain and nausea; Denies diarrhea, melena, rectal bleeding or vomiting Genitourinary Genitourinary ED: Denies dysuria or hematuria Musculoskeletal Musculoskeletal: Denies back pain or neck pain Integumentary Denies abscess or rash Neurologic Neurologic: Denies headache(s), paresthesias or weakness Psychiatric Psychiatric: Denies anxiety or suicidal thoughts EXAM Physical Exam Const Vital Signs: 06/26/22 07:25 06/26/22 09:25 06/26/22 11:00 Temperature 98 F Temperature Source Temporal Pulse Rate 110 H 99 Respiratory Rate 20 H 16 16 Blood Pressure 173/104 H 158/87 H Blood Pressure Mean 127 110 Pulse Ox 95 95 Oxygen Delivery Method Room Air Room Air 06/26/22 14:31 Temperature Temperature Source Pulse Rate Respiratory Rate Blood Pressure 173/90 H Blood Pressure Mean 117 Pulse Ox Oxygen Delivery Method High Flow Positive well nourished, well developed and obese General Appearance ED: well developed and NAD Nutritional Appearance: obese HEENT Reports moist mucous membranes normocephalic and atraumatic Eyes PERRL and EOMs intact bilaterally Neck full ROM and supple Resp normal respiratory effort and clear to auscultation bilaterally Cardio regular rate, regular rhythm and no murmurs GI non-distended GI Narrative: Tender left upper quadrant and epigastrium, also mild-moderate tenderness where he states his hernia is supraumbilical, I do not feel any definite lump, obesity limits the exam here. No palpable masses or pulsatile mass but again very limited. No other areas of tenderness. No guarding or rebound. Auscultation: normoactive bowel sounds Palpation: soft Back/Spine no CVA tenderness General Back: other FROM Extremity normal to inspection General Extremety ED: Negative for edema, pulses abnormal or tenderness General Extremity: Negative for edema or pulses abnormal Neuro oriented x3, CN's II-XII intact bilaterally and no sensory deficits noted Sensorium / Orientation: awake and alert Motor Exam: strength 5/5 throughout Skin no rashes or lesions noted and no wounds MDM MDM MDM Narrative Medical decision making narrative: Labs ordered and noted, he does have some mild hyperbilirubinemia but the rest of his liver enzymes, and his white blood count are okay. Negative lipase. Initially screened with a CT scan, suggesting enteritis which he does not have clinically, and possible signs of cholecystitis, ultrasound recommended. My interpretation of the CT agrees with that of the radiologist. Followed up with ultrasound, showing signs of calculus cholecystitis. On reexamination, he was feeling no better after initial morphine and Bentyl, but after Toradol he is feeling better and has a negative clinical Argueta sign clinically but is mildly tender. Discussed with surgery Dr. Ferrara, she the patient's records and saw that the patient has a history of hepatitis C cirrhosis which I was not aware of, and this could cause some of the radiographic abnormalities on the ultrasound and a CT. This could also be causing his mild hyperbilirubinemia which is not new although it is worse than his last measurement. Given that she recommends doing a HIDA scan without CCK to further evaluate for the possibility of acute cholecystitis which is not definitive based on his labs and imaging thus far. This was done in the ED. my interpretation of the HIDA agrees with that of the radiologist. It is normal, ruling out acute cholecystitis with high degree of certainty. Given this, I suspect this is more likely GI-related pain. He is doing better and going to prescribe him Pepcid as well as dicyclomine and advised that he follow-up closely. Lab Data Attestation: I reviewed the patient's lab results. Labs: Laboratory Results - last 24 hr 06/26/22 06/26/22 07:50 07:50 WBC 7.1 RBC 4.82 Hgb 14.9 Hct 42.3 MCV 87.8 MCH 30.9 MCHC 35.2 RDW Std Deviation 43.8 RDW Coeff of Mayra 13.9 Plt Count 69 L MPV 9.4 Immature Gran % (Auto) 0.300 Neut % (Auto) 76.0 H Lymph % (Auto) 14.5 L [place] % (Auto) 8.5 Eos % (Auto) 0.3 Baso % (Auto) 0.4 Absolute Neuts (auto) 5.4 Absolute Lymphs (auto) 1.03 Nucleated RBC % 0 Sodium 134 L Potassium 4.0 Chloride 103 Carbon Dioxide 23.0 Anion Gap 8 BUN 10 Creatinine 0.73 Estim Creat Clear Calc 118.11 Est GFR (MDRD) Af Amer 142 Est GFR (MDRD) Non-Af 117 BUN/Creatinine Ratio 13.8 Glucose 288 H Calcium 8.5 Total Bilirubin 2.10 H AST 28 ALT 49 Alkaline Phosphatase 87 Total Protein 7.9 Albumin 3.1 L Globulin 4.8 H Albumin/Globulin Ratio 0.6 L Lipase 80 Radiography Diagnostic Testing: Clinical Impression(s) from Imaging Studies Abdomen/Pelvis CT 06/26/22 07:54 IMPRESSION: Cholelithiasis with gallbladder distention and a mildly prominent gallbladder wall. Consider correlation with ultrasound or scintigraphy to assess for acute cholecystitis. Cirrhotic liver and splenomegaly with varices. Right lower quadrant mesenteric edema with small bowel wall thickening suggesting mild enteritis. Colonic diverticulosis without acute diverticulitis. Electronically Signed: Naida Morrison MD at 9:28 EST , Gallbladder Ultrasound 06/26/22 09:44 IMPRESSION: Cholelithiasis with gallbladder wall thickening and positive sonographic Argueta sign, concerning for acute cholecystitis. Mildly dilated common duct. Consider correlation with ERCP or MRCP to assess for obstructing stone or other lesion. Enlarged and cirrhotic liver with varices and portal hypertension. Electronically Signed: Naida Morrison MD at 10:40 EST , Hepatobiliary Scan Nuclear Medicine 06/26/22 12:28 IMPRESSION: 1. Visualization of the gallbladder within 60 minutes post radiopharmaceutical administration excludes acute cholecystitis with 97% certitude. (Janeen et al, Nucl Med Lea Jocelyn Press pg. 35, 1980). 2. 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 Electronically Signed: Napoleon Manzano, at 14:05 EST , Discharge Plan Triage Chief Complaint: Abd Pain ED Provider: Jacinto Hansen Dx/Rx/DC Orders Clinical Impression: Diffuse abdominal pain, Cholelithiasis, Chronic hepatitis C with cirrhosis Instructions: Abdominal Pain Prescriptions: New dicyclomine 10 mg capsule 20 mg PO Q6H PRN PRN (Reason: abdominal discomfort) Qty: 20 0RF famotidine [Pepcid] 40 mg tablet 40 mg PO DAILY Qty: 30 0RF No Action sofosbuvir-velpatasvir 400-100 mg tablet 1 tab PO DAILY Primary Care Provider: Sarai Burton Referrals: Sarai Burton MD [Primary Care Provider] - 3-5 Days if not improving Disposition Disposition: Home, Self Care
[2022-06-26] MEDS: 0.9% Normal Saline 1,000 ML 1000 ML IV (08:13)
[2022-06-26] MEDS: Morphine 4 MG/ML Syringe IV (08:13)
[2022-06-26] MEDS: Ondansetron 4 MG/2 ML Vial IV (08:13)
[2022-06-26] MEDS: Dicyclomine 10 MG Capsule 20 MG PO (08:13)
[2022-06-26 08:23] LABS: Absolute Lymphocyte Count 1.03 X10^3/uL (0.83-4.51); Absolute Neutrophil Count 5.4 X10^3/uL (2.0-7.7); Basophil# 0.03 X10^3/uL; Basophil% 0.4 % (0-1); Eosinophil# 0.02 X10^3/uL; Eosinophils% 0.3 % (0-5); Hematocrit 42.3 % (40-54); Hemoglobin 14.9 g/dL (13.0-16.5); Lymphocyte # 1.03 X10^3/ul (0.83-4.51); Lymphocyte % 14.5 % (19-41); Mean Corp Hgb Conc 35.2 g/dL (32-36); Mean Corpuscular Hgb 30.9 pg (27.0-32.0); Mean Corpuscular Volume 87.8 fL (80-94); Mean Platelet Vol. 9.4 fl (6.2-12.0); Monocyte% 8.5 % (0-10); NRBC Flagged by Analyzer 0 % (0-5); Neutrophil # 5.38 X10^3/uL (2.7-7.7); POSITIVE COUNT YES; Platelet Count 69 K/mm3 (150-450); RBC Distribution Width CV 13.9 % (11.6-14.6); RBC Distribution Width SD 43.8 fl (35.1-43.9); Red Blood Count 4.82 M/mm3 (4.6-6.2); White Blood Count 7.1 K/mm3 (4.4-11.0)
[2022-06-26 08:41] LABS: ALB/GLOB Ratio 0.6 RATIO (0.9-2.4); AST(SGOT) 28 U/L (15-37); Alanine Aminotransfer ALT/SGPT 49 U/L (16-61); Albumin, Serum 3.1 g/dL (3.2-5.0); Alkaline Phosphatase 87 U/L (45-117); Anion Gap 8 (5-15); BUN 10 mg/dL (7-18); BUN/Creat Ratio 13.8 RATIO (10-20); Calcium,Total 8.5 mg/dL (8.5-10.1); Chloride 103 mmol/L (98-107); Creatinine, Serum 0.73 mg/dL (0.70-1.30); EST Glomerular Filtration Rate 117 mL/min (>60); Est Glom Filt Rate - Afr Amer 142 mL/min (>60); Estimated Creatinine Clearance 118.11 ml/min; Globulin 4.8 g/dL (2.2-4.2); Glucose 288 mg/dL (74-106); Lipase 80 U/L (73-393); Protein, Total 7.9 g/dL (6.4-8.2); Sodium Level 134 mmol/L (136-145)
[2022-06-26 09:25] VITALS: BP 158/87; PULSE 99; RESP 16; O2SAT 95
--- NOTE | 2022-06-26 09:44 | US_ITS ---
HISTORY: pain. TECHNIQUE: Jackson scale and color doppler imaging was performed of the right upper quadrant. 104 images. COMPARISON: None. FINDINGS: LIVER: 19.3 cm in length. Heterogeneous echotexture and nodular contour without focal lesion demonstrated. No intrahepatic ductal dilatation. No significant perihepatic ascites. Varicosities noted. MAIN PORTAL VEIN: Patent with bidirectional flow, compatible with portal hypertension. COMMON BILE DUCT: 7 mm in diameter. GALLBLADDER: Multiple gallstones with biliary sludge in a 17.5 cm distended gallbladder. 5 mm wall thickness. No pericholecystic fluid. Sonographic Argueta sign positive. PANCREAS: Not well visualized due to overlying bowel gas. RIGHT KIDNEY: 13.3 cm in length with a cortical thickness of 2 cm. No hydronephrosis or gross renal mass demonstrated. US/Gallbladder IMPRESSION: Cholelithiasis with gallbladder wall thickening and positive sonographic Argueta sign, concerning for acute cholecystitis. Mildly dilated common duct. Consider correlation with ERCP or MRCP to assess for obstructing stone or other lesion. Enlarged and cirrhotic liver with varices and portal hypertension. Electronically Signed: Naida Morrison MD at 10:40 EST ,
[2022-06-26] MEDS: Ketorolac 15 MG/ML Vial IV (10:35)
[2022-06-26 11:00] VITALS: RESP 16
--- NOTE | 2022-06-26 12:28 | NM_ITS ---
CLINICAL: 62-year-old male with history of abdominal pain. RADIONUCLIDE HEPATOBILIARY SCINTIGRAPHY COMPARISON: Gallbladder ultrasound report 06/26/2021 FINDINGS: Following the intravenous administration of 5.5 mCi of 99m Tc Mebrofenin, hepatobiliary images reveal: 1. Homogeneous, delayed radiopharmaceutical concentration is noted by a normal sized liver. No parenchymal defects are identified. 2. Gallbladder activity is identified at 30 minutes post radiopharmaceutical administration. 3. Small intestinal tract is observed at approximately 48 minutes following tracer injection. 4. Washout of the radiopharmaceutical by the hepatic parenchyma appears qualitatively delayed. NM/Hepatobilliary Imaging IMPRESSION: 1. Visualization of the gallbladder within 60 minutes post radiopharmaceutical administration excludes acute cholecystitis with 97% certitude. (Janeen et al, Nucl Med Lea Jocelyn Press pg. 35, 1981). 2. 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 Electronically Signed: Napoleon Manzano, at 14:05 EST ,
[2022-06-26 14:31] VITALS: BP 173/90
== END 2022-06-26 15:24 | disposition home or self-care (01) ==
PROVIDERS: Emergency Provider Emergency Medicine; PCP Internal Medicine; Visit Provider Emergency Medicine
DX: K74.60 Unspecified cirrhosis of liver (principal); B18.2 Chronic viral hepatitis C; K80.20 Calculus of gallbladder without cholecystitis without obstruction; R10.84 Generalized abdominal pain; F17.210 Nicotine dependence, cigarettes, uncomplicated; E66.9 Obesity, unspecified
CPT/HCPCS: 74177; 76705; 78226; 80053; 83690; 85025; 96361; 96374; 96375; 99283; A9537; J7030; Q9967; A4216; J2405

== ENCOUNTER → 2022-07-01 | Outpatient (CLI) | payer MEDICAID, SELFPAY ==
--- NOTE | 2022-07-01 13:40 | RAD_ITS ---
STUDY: X-RAY - PELVIS AND RIGHT HIP REASON FOR EXAM: Male, 62 years old. Right hip pain. TECHNIQUE: 3 views of the pelvis and hip. COMPARISON: None. FINDINGS: There is a non-specific bowel gas pattern. Normal visualized soft tissue structures. Normal bilateral iliac wings, sacroiliac joints and visualized sacrum. Normal bilateral superior and inferior pubic rami. Normal pubic symphysis. Normal bilateral ischial tuberosities. Normal visualized right femoral head. Normal right acetabulum. Normal right hip joint. RAD/HIP, UNI W/ Pelvis 2-3 Views IMPRESSION: Normal x-ray examination of the pelvis and right hip. Electronically Signed: Patricoi Delcid DO at 17:38 EST ,
[2022-07-01 13:43] LABS: Absolute Lymphocyte Count 1.24 X10^3/uL (0.83-4.51); Absolute Neutrophil Count 3.7 X10^3/uL (2.0-7.7); Basophil# 0.03 X10^3/uL; Basophil% 0.5 % (0-1); Eosinophil# 0.13 X10^3/uL; Eosinophils% 2.4 % (0-5); Hematocrit 41.5 % (40-54); Hemoglobin 14.5 g/dL (13.0-16.5); Lymphocyte # 1.24 X10^3/ul (0.83-4.51); Lymphocyte % 22.6 % (19-41); Mean Corp Hgb Conc 34.9 g/dL (32-36); Mean Corpuscular Hgb 30.8 pg (27.0-32.0); Mean Corpuscular Volume 88.1 fL (80-94); Mean Platelet Vol. 8.7 fl (6.2-12.0); Monocyte# 0.41 X10^3/uL; Monocyte% 7.5 % (0-10); NRBC Flagged by Analyzer 0 % (0-5); Neutrophil # 3.66 X10^3/uL (2.7-7.7); Neutrophil % 66.6 % (47-70); POSITIVE COUNT YES; Platelet Count 96 K/mm3 (150-450); RBC Distribution Width CV 14.2 % (11.6-14.6); Red Blood Count 4.71 M/mm3 (4.6-6.2); White Blood Count 5.5 K/mm3 (4.4-11.0)
[2022-07-01 13:50] LABS: International Normalized Ratio 1.3; Prothrombin Time (Protime)PT. 16.2 SECONDS (11.7-14.9)
[2022-07-01 13:53] LABS: ALB/GLOB Ratio 0.7 RATIO (0.9-2.4); AST(SGOT) 35 U/L (15-37); Alanine Aminotransfer ALT/SGPT 49 U/L (16-61); Albumin, Serum 3.2 g/dL (3.2-5.0); Alkaline Phosphatase 83 U/L (45-117); Anion Gap 6 (5-15); BUN 6 mg/dL (7-18); BUN/Creat Ratio 8.3 RATIO (10-20); Calcium,Total 8.7 mg/dL (8.5-10.1); Chloride 106 mmol/L (98-107); Creatinine, Serum 0.73 mg/dL (0.70-1.30); EST Glomerular Filtration Rate 117 mL/min (>60); Est Glom Filt Rate - Afr Amer 142 mL/min (>60); Globulin 4.8 g/dL (2.2-4.2); Glucose 195 mg/dL (74-106); Potassium 3.8 mmol/L (3.5-5.1); Sodium Level 139 mmol/L (136-145)
== END | disposition home or self-care (01) ==
PROVIDERS: PCP Internal Medicine; Referring Provider Internal Medicine Gastroenterology; Visit Provider Internal Medicine Gastroenterology
DX: K74.60 Unspecified cirrhosis of liver (principal); F10.10 Alcohol abuse, uncomplicated; B19.20 Unspecified viral hepatitis C without hepatic coma; M25.551 Pain in right hip
CPT/HCPCS: 36415; 73502; 80053; 80074; 82105; 85025; 85610; 87522

== ENCOUNTER 2022-07-23 13:30 | Outpatient (RCR) | payer MEDICAID, SELFPAY | END 2022-07-23 23:59 | LOC: NS 13:30 | PROVIDERS: PCP Internal Medicine; Visit Provider Internal Medicine Gastroenterology | DX: R73.09 Other abnormal glucose (principal) | CPT/HCPCS: 97803 ==

== ENCOUNTER → 2022-08-15 | Outpatient (CLI) | payer MEDICAID, SELFPAY ==
[2022-08-15 15:15] LABS: International Normalized Ratio 1.2; Prothrombin Time (Protime)PT. 14.9 SECONDS (11.7-14.9)
[2022-08-15 15:17] LABS: Absolute Lymphocyte Count 1.15 X10^3/uL (0.83-4.51); Absolute Neutrophil Count 5.3 X10^3/uL (2.0-7.7); Basophil# 0.04 X10^3/uL; Basophil% 0.6 % (0-1); Eosinophil# 0.12 X10^3/uL; Eosinophils% 1.7 % (0-5); Hematocrit 42.8 % (40-54); Hemoglobin 14.7 g/dL (13.0-16.5); Lymphocyte # 1.15 X10^3/ul (0.83-4.51); Lymphocyte % 16.2 % (19-41); Mean Corp Hgb Conc 34.3 g/dL (32-36); Mean Corpuscular Hgb 30.8 pg (27.0-32.0); Mean Corpuscular Volume 89.7 fL (80-94); Mean Platelet Vol. 9.1 fl (6.2-12.0); Monocyte# 0.51 X10^3/uL; Monocyte% 7.2 % (0-10); NRBC Flagged by Analyzer 0 % (0-5); Neutrophil # 5.27 X10^3/uL (2.7-7.7); Platelet Count 117 K/mm3 (150-450); RBC Distribution Width CV 14.1 % (11.6-14.6); RBC Distribution Width SD 45.9 fl (35.1-43.9); Red Blood Count 4.77 M/mm3 (4.6-6.2); White Blood Count 7.1 K/mm3 (4.4-11.0)
[2022-08-15 15:38] LABS: ALB/GLOB Ratio 0.7 RATIO (0.9-2.4); AST(SGOT) 28 U/L (15-37); Alanine Aminotransfer ALT/SGPT 27 U/L (16-61); Albumin, Serum 3.2 g/dL (3.2-5.0); Alkaline Phosphatase 83 U/L (45-117); Anion Gap 5 (5-15); BUN 12 mg/dL (7-18); Calcium,Total 9.3 mg/dL (8.5-10.1); Chloride 104 mmol/L (98-107); Creatinine, Serum 0.75 mg/dL (0.70-1.30); EST Glomerular Filtration Rate 113 mL/min (>60); Est Glom Filt Rate - Afr Amer 136 mL/min (>60); Globulin 4.8 g/dL (2.2-4.2); Glucose 227 mg/dL (74-106); Potassium 4.3 mmol/L (3.5-5.1); Sodium Level 137 mmol/L (136-145)
[2022-08-15 16:40] LABS: Hepatitis C Antibody Preliminary Reactive (Nonreactive)
[2022-08-17 20:07] LABS: HCV Quant. RNA PCR HCV Not Detected IU/mL (.)
== END | disposition home or self-care (01) ==
PROVIDERS: PCP Internal Medicine; Referring Provider Internal Medicine Gastroenterology; Visit Provider Internal Medicine Gastroenterology
DX: K74.60 Unspecified cirrhosis of liver (principal); E11.9 Type 2 diabetes mellitus without complications; B19.20 Unspecified viral hepatitis C without hepatic coma
CPT/HCPCS: 36415; 80053; 85025; 85610; 86803; 87522

== ENCOUNTER 2022-08-21 13:07 | Outpatient (RCR) | payer MEDICAID, SELFPAY | END 2022-09-20 23:59 | LOC: NS 13:07 | PROVIDERS: PCP Internal Medicine; Referring Provider Internal Medicine Gastroenterology; Visit Provider Internal Medicine Gastroenterology | DX: Z71.3 Dietary counseling and surveillance (principal); R73.09 Other abnormal glucose | CPT/HCPCS: 97803 ==

== ENCOUNTER → 2022-11-14 | Outpatient (CLI) | payer BC, MEDICAID, SELFPAY ==
[2022-11-14 10:11] LABS: Absolute Neutrophil Count 3.5 X10^3/uL (2.0-7.7); Basophil# 0.04 X10^3/uL; Basophil% 0.8 % (0-1); Eosinophil# 0.11 X10^3/uL; Eosinophils% 2.1 % (0-5); Hematocrit 43.7 % (40-54); Hemoglobin 14.5 g/dL (13.0-16.5); Lymphocyte % 22.6 % (19-41); Mean Corp Hgb Conc 33.2 g/dL (32-36); Mean Corpuscular Hgb 30.1 pg (27.0-32.0); Mean Corpuscular Volume 90.7 fL (80-94); Mean Platelet Vol. 9.5 fl (6.2-12.0); Monocyte# 0.45 X10^3/uL; Monocyte% 8.5 % (0-10); NRBC Flagged by Analyzer 0 % (0-5); Neutrophil # 3.49 X10^3/uL (2.7-7.7); Neutrophil % 65.6 % (47-70); POSITIVE COUNT YES; Platelet Count 84 K/mm3 (150-450); RBC Distribution Width CV 13.5 % (11.6-14.6); RBC Distribution Width SD 44.1 fl (35.1-43.9); Red Blood Count 4.82 M/mm3 (4.6-6.2); White Blood Count 5.3 K/mm3 (4.4-11.0)
[2022-11-14 10:26] LABS: International Normalized Ratio 1.2; Prothrombin Time (Protime)PT. 15.6 SECONDS (11.7-14.9)
[2022-11-14 10:29] LABS: Differential Indicated SCAN CRITERIA MET
[2022-11-14 10:34] LABS: ALB/GLOB Ratio 0.7 RATIO (0.9-2.4); AST(SGOT) 28 U/L (15-37); Alanine Aminotransfer ALT/SGPT 27 U/L (16-61); Albumin, Serum 3.2 g/dL (3.2-5.0); Alkaline Phosphatase 88 U/L (45-117); Anion Gap 6 (5-15); BUN 20 mg/dL (7-18); BUN/Creat Ratio 25.9 RATIO (10-20); Calcium,Total 8.4 mg/dL (8.5-10.1); Chloride 110 mmol/L (98-107); Creatinine, Serum 0.77 mg/dL (0.70-1.30); EST Glomerular Filtration Rate 109 mL/min (>60); Est Glom Filt Rate - Afr Amer 132 mL/min (>60); Globulin 4.7 g/dL (2.2-4.2); Glucose 165 mg/dL (74-106); Potassium 4.2 mmol/L (3.5-5.1); Protein, Total 7.9 g/dL (6.4-8.2); Sodium Level 142 mmol/L (136-145)
[2022-11-14 10:52] LABS: Platelet Estimate MKD DEC (ADEQ)
== END | disposition home or self-care (01) ==
PROVIDERS: PCP Internal Medicine; Referring Provider Nurse Practitioner Adult Health; Visit Provider Nurse Practitioner Adult Health
DX: K74.60 Unspecified cirrhosis of liver (principal)
CPT/HCPCS: 36415; 80053; 82140; 85025; 85610

== ENCOUNTER 2023-03-13 07:22 | Day surgery (SDC) | payer BC, MEDICAID, SELFPAY ==
[2023-03-13] VITALS (7 sets, daily range): BP systolic 123–154; BP diastolic 68–90; PULSE 17–97; RESP 16–18; TEMP 28.8–36.6; O2SAT 92–95; BMI 43.5
[2023-03-13] MEDS: Lactated Ringers 1,000 ML 15 ML IV (07:59)
[2023-03-13 08:30] LABS: Bedside Glucose 150 mg/dL (74-106)
--- NOTE | 2023-03-13 08:30 | IMM_PTH ---
PATIENT: JOHNNIE PARRA LOC: EN U#:[id number] AGE/SX: 62/M ROOM: RE03/13/[address]: Dr. Chris Hoskins DO : 1960 BED: DIS: 03/13/2023 SPEC #: [id number] RECD: 03/13/23 13:57 STATUS: SHAWN REQ #: [id number] JOSI: 03/13/23 08:[address]: Chris Hoskins DEPT: IMMUNOHISTOCHEMISTRY RECD BY: Kiah Mccormack ENTERED: 03/13/23 13:58 SP TYPE: IMMUNO OTHR DR: Dr. Sarai Burton MD Tissues: B - Gastric mucous membrane A - Esophagus, NOS Procedures: H Pylori (initial) KI-67 (add) P53 (add) PHYSICIAN & INSTITUTION [place] [address] SPECIMEN INFORMATION: Tissue Source: A & B - Distal esophagus and gastric body polyp Clinical Info: Cirrhosis Specimen Number: [id number] A & B CPT code: 58754, 97001 x2 METHODOLOGY: Deparaffinized sections of prefer/formalin-fixed tissue or PAP/DQ stained slides are incubated with monoclonal/polyclonal antibodies/oligonucleotide probes. Localization is made via biotin free immunoperoxidase method. Appropriate controls are performed and reacted as expected. Results on target cell population are indicated in the following table: RESULTS: ANTIBODY / CLONE RESULT Block A & B P53 (DO-7) negative (wild type pattern) Ki-67 (30-9) positive (low) H Pylori (polyclonal) negative These tests were developed and their performance characteristics determined by [facility]. They may not have been cleared or approved by the U.S. Food and Drug Administration. The FDA has determined that such clearance or approval is not necessary. The above immunohistochemical/dualISH markers are ordered and reviewed by the Pathologist. INTERPRETATION: A & B. Distal esophagus and gastric body polyp, biopsy: Negative for dysplasia. Negative for Helicobacter pylori organisms. ABHI:kalin 03/17/2023
--- NOTE | 2023-03-13 08:30 | EGD_PTH ---
PATIENT: JOHNNIE PARRA LOC: EN U#:[id number] AGE/SX: 62/M ROOM: RE03/13/[address]: Dr. Chris Hoskins DO : 1960 BED: DIS: 03/13/2023 SPEC #: [id number] RECD: 03/13/23 11:10 STATUS: SHAWN JERONIMO #: [id number] JOSI: 03/13/23 08:[address]: Chris Hoskins DEPT: SURGICAL PATHOLOGY RECD BY: Michelle Dumont ENTERED: 03/13/23 12:32 SP TYPE: EGD BIOPSY DEMARIO DR: Dr. Sarai Burton MD Tissues: A - Esophagus, NOS B - Gastric mucous membrane Procedures: Special Stain Group II Surgery Specimen Level IV Alcian Blue/PAS (control) HEADER OPERATION[place] [place] PRE-OP DIAGNOSIS: Cirrhosis TISSUE SUBMITTED: A - Distal esophagus biopsy, B - Gastric body polyp biopsy MICROSCOPIC DIAGNOSIS A & B. Distal esophagus and gastric body polyp, biopsy: Fragments of gastroesophageal mucosa with focal intestinal metaplasia (goblet cell metaplasia), consistent with Yap's esophagus. Chronic inflammation. Negative for dysplasia. Fragments of gastric mucosa with chronic inflammation. See comment. SJ:rg 03/14/2023 COMMENT A & B. Immunohistochemistry ([id number]) for P53 and Ki-67 will be performed and results will be reported separately. Alcian blue/PAS stain with matched control is used in the evaluation of the specimen. The results of immunohistochemistry for Helicobacter pylori will be reported separately ([id number]). Case has been reviewed in consultation with Dr. Pickard who concurs with the above diagnosis. IDC:AM MICROSCOPIC DESCRIPTION Slides are reviewed. GROSS DESCRIPTION A & B. Received in fixative are two containers labeled with the patient's name and designated distal esophagus and gastric body polyp. The specimens consist of multiple irregular fragments of light griffin soft tissue that in aggregate measure 1.0 x 0.6 x 0.1 cm. The specimen is totally submitted in one cassette. Note: Both specimens are accidentally submitted in one cassette. / SJ:kalin 03/13/2023 TC:3 CPT: 52093 x2, 41581
--- NOTE | 2023-03-13 08:40 | PCM.HP.BLA ---
History and Physical Date of Admission: 03/13/23 62 M who presents to the office today for 3 month f/u cirrhosis, hx hepatitis C. At his last appt labs showed eradication of HCV. Relatively new job at [employer] in [place] from 6p to 6a, so not getting great sleep. No brain fog except maybe related to lack of sleep. Last ammonia level was normal in 02/2022, it had been 48 in 11/2021. He has at least on BM per day, typically more than one. Hasn't been on lactulose before. Denies diarrhea but stools can sometimes be soft or loose from metformin. No jaundice, rash, pruritus, ascites. Still drinking alcohol. Cirrhosis -- Liver biopsy ..?consistent with cirrhosis with distortion of normal lobular architecture into multiple nodules with macro and microvesicular steatosis; chronic inflammation and ductular proliferation; absent iron; no accumulation of protein. US RUQ and elastography .?liver measure 21.2cm with fatty infiltration. Remaining exam without abnormality. Stiffness measures 13.5 kPa F3/4. Mild portal hypertensive gastropathy on EGD in 02/2022. Hepatitis C -- HCV not detected 08/15/22 Cholecystitis -- since he is high risk for surgery Dr Aidee put him on ursodiol. Typically remembers to take ursodiol once a day. 02/2022 EGD: mild portal hypertensive gastropathy, one oozing cratered gastric ulcer, one nonbleeding gastric ulcer 02/2022 Colonoscopy: 3 polyps, repeat 3 yrs ? Colonoscopy diverticulosis; three 1-2mm TA and hyperplastic polyps. MELD 12.12.21 7 03.06.22 10 07.01.22 11 ROS Const Constitutional: Positive for fatigue ENT ENT: No difficulty swallowing Gastro GI: No abdominal pain, belching, bloating, change in bowel habits, change in stool character, coffee ground emesis, constipation, cramping, diarrhea, heartburn, difficulty swallowing, feeling full early, excessive flatus, incontinent of stools, Vomiting blood/hematemesis, Blood in stool, loose stools, Black,tarry stools, nausea/dyspepsia, pain with swallowing, vomiting or other Musc Musculoskeletal: Positive for joint pain and stiffness Skin Skin: No yellowing of the eye or itchy eyes Psych Psychiatric: No anxiety and No depression Endo Endocrine: Positive for fatigue Aller/Imm Allergy/Immunologic: No itchy eyes Fish/Lymp Hematologic/Lymphatic: No easy bleeding or easy bruising Exam Const General: cooperative and comfortable Nutritional Appearance: obese Orientation: alert, awake and oriented x3 Eyes Sclera: sclerae normal Resp Effort & Inspection: normal respiratory effort GI Inspection: obesity Skin General: no jaundice Quality Reporting Tobacco Screening ([facility] 138) Smoking Status: Current every day smoker Assessment and Plan Assessment and Plan (1) Cirrhosis: Status: Chronic Plan: No signs of decompensation He is still drinking alcohol He is on metoprolol We'll check ammonia level and labs for MELD today He doesn't recall ever taking lactulose, will consider that Will schedule EGD for 02/2023 Orders: Orders Comprehensive Metabolic Profil Today K74.60 - Unspecified cirrhosis of liver Prothrombin Time w/INR Today K74.60 - Unspecified cirrhosis of liver CBC W/Diff, Automated Today K74.60 - Unspecified cirrhosis of liver Ammonia Today K74.60 - Unspecified cirrhosis of liver Medications: Refilled ursodiol 250 mg PO BID 180 tabs 3RF ursodiol 250 mg PO BID 180 tabs 3RF I have examined the patient and the H&P has been reviewed. There are no clinical changes since date of exam.
--- NOTE | 2023-03-13 09:05 | OP.EGD_ITS ---
Patient Name: Darrin Garvin Procedure Date: 03/13/2023 8:45 AM Date of : 1960 Age: 62 Procedure: Upper GI endoscopy Indications: Yap's esophagus, Cirrhosis with suspected esophageal varices Providers: Chris Hoskins DO Medicines: Monitored Anesthesia Care Patient Profile: This is a 62 year old male. Refer to note in patient chart for documentation of history and physical. Patient has symptoms of chronic heartburn and chronic nausea. Complications: No immediate complications. Procedure: Pre-Anesthesia Assessment: - Prior to the procedure, a History and Physical was performed, and patient medications and allergies were reviewed. The patient is competent. The risks and benefits of the procedure and the sedation options and risks were discussed with the patient. All questions were answered and informed consent was obtained. Patient identification and proposed procedure were verified by the physician in the pre-procedure area. Airway Examination: normal oropharyngeal airway and neck mobility. Respiratory Examination: clear to auscultation. CV Examination: normal. Prophylactic Antibiotics: The patient does not require prophylactic antibiotics. Prior Anticoagulants: The patient has taken no anticoagulant or antiplatelet agents. ASA Grade Assessment: III - A patient with severe systemic disease. After reviewing the risks and benefits, the patient was deemed in satisfactory condition to undergo the procedure. The anesthesia plan was to use monitored anesthesia care (MAC). Immediately prior to administration of medications, the patient was re-assessed for adequacy to receive sedatives. The heart rate, respiratory rate, oxygen saturations, blood pressure, adequacy of pulmonary ventilation, and response to care were monitored throughout the procedure. The physical status of the patient was re-assessed after the procedure. After obtaining informed consent, the endoscope was passed under direct vision. Throughout the procedure, the patient's blood pressure, pulse, and oxygen saturations were monitored continuously. The gastroscope was introduced through the mouth, and advanced to the second part of duodenum. The upper GI endoscopy was accomplished without difficulty. The patient tolerated the procedure well. Scope In: 8:53:02 AM Scope Out: 8:56:42 AM Total Procedure Duration Time 0 hours 3 minutes 40 seconds Findings: There were esophageal mucosal changes secondary to established short-segment Yap's disease present in the lower third of the esophagus. The maximum longitudinal extent of these mucosal changes was 3 cm in length. Mucosa was biopsied with a cold forceps for histology at intervals of 1 cm in the lower third of the esophagus. One specimen bottle was sent to pathology. Verification of patient identification for the specimen was done. Estimated blood loss was minimal. Mild portal hypertensive gastropathy was found in the gastric body. Three 4 mm sessile polyps with no stigmata of recent bleeding were found in the gastric body. The polyp was removed with a cold snare. Resection and retrieval were complete. Verification of patient identification for the specimen was done. Patchy mildly erythematous mucosa without active bleeding and with no stigmata of bleeding was found in the duodenal bulb. Impression: - Esophageal mucosal changes secondary to established short-segment Yap's disease. Biopsied. - Portal hypertensive gastropathy. - Three gastric polyps. Resected and retrieved. - Erythematous duodenopathy. Recommendation: - Await pathology results. - Repeat upper endoscopy for surveillance. - Continue present medications. Procedure Code(s): --- Professional --- 68622, Esophagogastroduodenoscopy, flexible, transoral; with removal of tumor(s), polyp(s), or other lesion(s) by snare technique 98493, 59,51, Esophagogastroduodenoscopy, flexible, transoral; with biopsy, single or multiple CPT copyright 2021 [employer]. All rights reserved. The codes documented in this report are preliminary and upon remote inpatient coder review may be revised to meet current compliance requirements. Chris Hoskins DO 03/13/2023 9:04:49 AM This report has been signed electronically. Number of Addenda: 0 Note Initiated On: 03/13/2023 8:45 AM
--- NOTE | 2023-03-13 09:05 | OP.CCLET_ITS ---
03/13/2023 Sarai Burton [facility] [address] [place] [address] Re : Upper GI endoscopy procedure for Darrin Garvin Dear Dr. Burton This procedure was performed on February. My impressions and recommendations are as follows: Impressions : - Esophageal mucosal changes secondary to established short-segment Yap's disease. Biopsied. - Portal hypertensive gastropathy. - Three gastric polyps. Resected and retrieved. - Erythematous duodenopathy. Recommendations : - Await pathology results. - Repeat upper endoscopy for surveillance. - Continue present medications. My findings are described in the full procedure note, which is enclosed. If I can be of further assistance, please feel free to contact me at . Sincerely, Chris Hoskins, 03/13/2023 9:04:49 AM This report has been signed electronically.
== END 2023-03-13 09:53 | disposition home or self-care (01) ==
LOC: EN 07:22 → AC 07:23
PROVIDERS: PCP Internal Medicine; Referring Provider Internal Medicine; Visit Provider Internal Medicine Gastroenterology
PROC: 0DJ08ZZ Inspection of Upper Intestinal Tract, Via Natural or Artificial Opening Endoscopic (ICD-10-PCS; CPT 43235; principal; 2023-03-13 08:25)
DX: K22.70 Barrett's esophagus without dysplasia (principal); K76.6 Portal hypertension; K74.60 Unspecified cirrhosis of liver; Z68.41 Body mass index [BMI] 40.0-44.9, adult; E11.9 Type 2 diabetes mellitus without complications; F17.200 Nicotine dependence, unspecified, uncomplicated; K31.7 Polyp of stomach and duodenum; K21.00 Gastro-esophageal reflux disease with esophagitis, without bleeding; I10 Essential (primary) hypertension; E66.9 Obesity, unspecified; Z79.84 Long term (current) use of oral hypoglycemic drugs; Z79.899 Other long term (current) drug therapy; K31.89 Other diseases of stomach and duodenum
CPT/HCPCS: 43251; 43239; 82962; 88305; 88313; 88341; 88342; J7120; J2405

== ENCOUNTER 2023-06-12 16:57 | Emergency (ER) | payer BC, MEDICAID, SELFPAY ==
[2023-06-12 17:00] VITALS: BP 119/84; PULSE 108; RESP 22; TEMP 37.3; O2SAT 96; BMI 43.9
--- NOTE | 2023-06-12 19:06 | US_ITS ---
INDICATION: rt pain, fever EXAMINATION: Ultrasound US Scrotum (Contents) TECHNIQUE: Realtime ultrasound of the testicles was performed with grayscale, Color Doppler and spectral Doppler analysis. COMPARISON: None. FINDINGS: RIGHT: TESTIS: 5.0 x 3.3 x 2.1 cm. Normal in size, mildly striated echotexture, without focal lesion. COLOR DOPPLER: Normal arterial flow present in the testicle with monophasic waveforms. EPIDIDYMIS: Normal in size and echotexture, without focal lesion. [Normal color Doppler flow pattern in the epididymis. HYDROCELE: Small. VARICOCELE: Present on Valsalva maneuver. LEFT: TESTIS: 5.0 x 2.8 x 2.2 cm. Normal in size, mildly echotexture, without focal lesion. COLOR DOPPLER: Normal arterial flow present in the testicle with monophasic waveforms. EPIDIDYMIS: Normal in size and echotexture, 2 mm spermatocele. [Normal color Doppler flow pattern in the epididymis. HYDROCELE: Small. VARICOCELE: None. US/Testicular with Arterial Flow IMPRESSION: Normal testes bilaterally. Right varicocele. Electronically Signed: Jac Dash MD at 22:01 EST ,
--- NOTE | 2023-06-12 19:08 | EDS_ITS ---
HPI History of Present Illness Chief Complaint: Complaint Informant: patient Onset/Context/Timing Onset: Yesterday Narrative Narrative: Patient presents secondary to dysuria, frequency, testicular pain, and fever. He went to the urgent care today due to concern for UTI. He states he developed symptoms yesterday with frequent urination and only able to pass a small amount of urine. He states one of his testicles is swollen and sore. He reports having a fever of 101 at urgent care today. No cough, vomiting, or diarrhea. He denies history of UTIs. Urine apparently was not impressive over at the urgent care and he was sent to the ER due to concern for possible testicular infection. [facility] Medical History Alcohol abuse Alcohol use Anemia Cirrhosis Elevated glucose Fatty liver GERD (gastroesophageal reflux disease) Heartburn Hepatitis Hepatitis C History of fracture of arm History of pain when walking History of stress test Hypertension Smoker Wears contact lenses Wears glasses Home Medications metformin 500 mg tablet 500 mg PO BID 02/13/23 [History Last Taken 03/11/23] ursodiol 250 mg tablet 250 mg PO Q12H 3 months #180 tabs 03/21/23 [Rx Last Taken Unknown] metoprolol tartrate 50 mg tablet 50 mg PO Q12H #180 tabs 03/27/23 [Rx Last Taken Unknown] ciprofloxacin HCl 500 mg tablet (Cipro) 500 mg PO BID #10 tabs 06/13/23 [Rx Last Taken Unknown] omeprazole 40 mg capsule,delayed release 40 mg PO DAILY 06/13/23 [History Last Taken Unknown] Allergy/AdvReac Type Severity Reaction Status Date / Time No Known Allergies Allergy Verified 06/12/23 16:59 Family History Father Pancreatic cancer Heart disease Surgical History Hx of colonoscopy with polypectomy Social History Smoking Status: Current every day smoker tobacco type: cigarettes alcohol intake: current alcohol intake frequency: 0-2 drinks per day substance use type: does not use what type of physical activity do you participate in: none ROS ROS ED Constitutional Constitutional ED: Reports fever(s); Denies chills Eyes Eyes: Denies change in vision or discharge from eye(s) ENT ENT ED: Denies discharge from eye(s), rhinorrhea or sore throat Cardiovascular Cardiovascular: Denies chest pain or palpitations Respiratory/Chest Respiratory/Chest: Denies cough or dyspnea Gastrointestinal Gastrointestinal: Denies abdominal pain, diarrhea, nausea or vomiting Genitourinary Genitourinary ED: Reports difficulty urinating, dysuria and urinary frequency Musculoskeletal Musculoskeletal: Denies back pain or extremity pain Integumentary Denies Abrasions or rash Neurologic Neurologic: Denies headache(s) or weakness Psychiatric Psychiatric: Denies anxiety or depression Allergic/Immunologic Allergic/Immunologic ED: Denies lip swelling or urticaria EXAM Physical Exam Const Vital Signs: 06/12/23 17:00 06/12/23 23:58 Temperature 99.1 F Temperature Source Temporal Pulse Rate 108 H 77 Respiratory Rate 22 H 18 Blood Pressure 119/84 H 138/76 H Blood Pressure Mean 95 96 Pulse Ox 96 97 Oxygen Delivery Method Room Air Room Air Positive well nourished and well developed General Appearance ED: well developed HEENT Reports moist mucous membranes Eyes EOMs intact bilaterally Chest Wall inspection of chest normal and palpation of chest normal Resp normal respiratory effort and clear to auscultation bilaterally Cardio Rate: tachycardic GI GI Narrative: Abdomen soft and nontender. Back/Spine no CVA tenderness Neuro oriented x3 and no sensory deficits noted Motor Exam: strength 5/5 throughout Psych mental status grossly normal MDM MDM MDM Narrative Medical decision making narrative: IV line established. Patient given Tylenol for fever. Labwork obtained to evaluate for leukocytosis, anemia, and electrolyte derangement. Urinalysis obtained to evaluate for infection/hematuria. Blood and urine cultures obtained. Patient sent for testicular ultrasound. History & Record Review Discussion w/independent historian: Patient Lab Data Attestation: I reviewed the patient's lab results. Labs: Laboratory Results - last 24 hr 06/12/23 06/12/23 19:30 23:50 WBC 6.2 RBC 4.45 L Hgb 13.3 Hct 38.9 L MCV 87.4 MCH 29.9 MCHC 34.2 RDW Std Deviation 43.2 RDW Coeff of Mayra 13.5 Plt Count 75 L MPV 9.3 Immature Gran % (Auto) 0.500 Neut % (Auto) 76.5 H Lymph % (Auto) 10.7 L Pinal % (Auto) 11.5 H Eos % (Auto) 0.5 Baso % (Auto) 0.3 Absolute Neuts (auto) 4.7 Absolute Lymphs (auto) 0.66 L Nucleated RBC % 0 Sodium 137 Potassium 3.8 Chloride 106 Carbon Dioxide 24.0 Anion Gap 7 BUN 10 Creatinine 0.74 Estim Creat Clear Calc 115.06 Est GFR (MDRD) Af Amer 139 Est GFR (MDRD) Non-Af 115 BUN/Creatinine Ratio 13.6 Glucose 185 H Calcium 8.7 Urine Color Martine Urine Clarity Clear Urine pH 5.0 Ur Specific Mckinney 1.025 Urine Protein 30 H Urine Glucose (UA) Normal Urine Ketones 5 H Urine Occult Blood 150 H Urine Nitrite Negative Urine Bilirubin 1 H Urine Urobilinogen 4 H Ur Leukocyte Esterase 100 H Urine RBC 0-5 SEEN Urine WBC 5-10 SEEN Ur Squamous Epith Cells 0-5 SEEN Urine Bacteria RARE Urine Mucus 2+ Radiography Diagnostic Testing: Clinical Impression(s) from Imaging Studies Testicular Ultrasound 06/12/23 19:06 IMPRESSION: Normal testes bilaterally. Right varicocele. Electronically Signed: Jac Dash MD at 22:01 EST , Abdomen/Pelvis CT 06/12/23 22:13 IMPRESSION: Correlate for possible cystitis. Hepatic cirrhosis with splenomegaly and portal hypertension. Cholelithiasis. Electronically Signed: Jac Dash MD at 23:35 EST , Treatment and Re-Evaluation :: CBC was a white blood cell count of 6.2 with a hemoglobin of 13.3. 76% neutrophils are noted. Chemistry studies are unremarkable with normal renal function. Glucose is elevated at 185. Urinalysis does reveal rare bacteria with 5-10 white cells. 0-5 RBCs noted. Testicular ultrasound reveals normal testes bilaterally. Right-sided varicocele is noted. CT scan of the flank reveals possible cystitis with inflammation of the bladder wall. Hepatic cirrhosis with splenomegaly and portal hypertension is noted. Patient has urinary frequency and dysuria consistent with UTI. Urine will be sent for culture. I will treat him with a course of Cipro. Return instructions given. Discharge Plan Triage Chief Complaint: Complaint ED Provider: Katherine Howard Dx/Rx/DC Orders Clinical Impression: UTI (urinary tract infection), Varicocele Instructions: ED Urinary Tract Infections in Men, ED Varicocele Prescriptions: New ciprofloxacin HCl [Cipro] 500 mg tablet 500 mg PO BID Qty: 10 0RF No Action ursodiol 250 mg tablet 250 mg PO Q12H 90 Days Qty: 180 3RF metformin 500 mg tablet 500 mg PO BID omeprazole 40 mg capsule,delayed release(DR/EC) 40 mg PO DAILY metoprolol tartrate 50 mg tablet 50 mg PO Q12H Qty: 180 3RF Primary Care Provider: Sarai Burton Referrals: Sarai Burton MD [Primary Care Provider] - 1 Week Disposition Disposition: Home, Self Care
[2023-06-12 19:47] LABS: Absolute Lymphocyte Count 0.66 X10^3/uL (0.83-4.51); Absolute Neutrophil Count 4.7 X10^3/uL (2.0-7.7); Basophil# 0.02 X10^3/uL; Basophil% 0.3 % (0-1); Eosinophil# 0.03 X10^3/uL; Eosinophils% 0.5 % (0-5); Hematocrit 38.9 % (40-54); Hemoglobin 13.3 g/dL (13.0-16.5); Lymphocyte # 0.66 X10^3/ul (0.83-4.51); Lymphocyte % 10.7 % (19-41); Mean Corp Hgb Conc 34.2 g/dL (32-36); Mean Corpuscular Hgb 29.9 pg (27.0-32.0); Mean Corpuscular Volume 87.4 fL (80-94); Mean Platelet Vol. 9.3 fl (6.2-12.0); Monocyte# 0.71 X10^3/uL; Monocyte% 11.5 % (0-10); NRBC Flagged by Analyzer 0 % (0-5); Neutrophil # 4.71 X10^3/uL (2.7-7.7); Neutrophil % 76.5 % (47-70); POSITIVE COUNT YES; Platelet Count 75 K/mm3 (150-450); RBC Distribution Width CV 13.5 % (11.6-14.6); RBC Distribution Width SD 43.2 fl (35.1-43.9); Red Blood Count 4.45 M/mm3 (4.6-6.2); White Blood Count 6.2 K/mm3 (4.4-11.0)
[2023-06-12] MEDS: Acetaminophen 325 MG Tablet 650 MG PO (19:58)
[2023-06-12] MEDS: 0.9% Normal Saline (1000mL) 1,000 ML 150 ML IV (19:58)
[2023-06-12 20:00] LABS: Anion Gap 7 (5-15); BUN 10 mg/dL (7-18); BUN/Creat Ratio 13.6 RATIO (10-20); Calcium,Total 8.7 mg/dL (8.5-10.1); Chloride 106 mmol/L (98-107); Creatinine, Serum 0.74 mg/dL (0.70-1.30); EST Glomerular Filtration Rate 115 mL/min (>60); Est Glom Filt Rate - Afr Amer 139 mL/min (>60); Estimated Creatinine Clearance 115.06 ml/min; Glucose 185 mg/dL (74-106); Potassium 3.8 mmol/L (3.5-5.1); Sodium Level 137 mmol/L (136-145)
--- NOTE | 2023-06-12 22:13 | CT_ITS ---
INDICATION: dysuria, fever, back pain EXAMINATION: CT ABDOMEN AND PELVIS WITHOUT CONTRAST - CT Abdomen And Pelvis W/O Contrast Injection TECHNIQUE: Helically acquired images were obtained of the abdomen and pelvis without oral or IV contrast. A radiation dose optimization technique was used for this scan. IV Contrast dosage and agent: None. Oral contrast: None. COMPARISON: 06/26/2022 FINDINGS: LOWER CHEST: Lung bases are clear. No cardiomegaly or pericardial effusion. LIVER: Stable cirrhotic appearance. No concerning focal mass. GALLBLADDER AND BILIARY TREE: Calcified gallstones. No gallbladder distension or wall edema. No intra- or extrahepatic biliary ductal dilation. PANCREAS: No focal cystic or solid mass. SPLEEN: Stable splenomegaly, accessory splenule. ADRENAL GLANDS: No nodules. KIDNEYS AND URETERS: No nephrolithiasis or hydronephrosis. PERITONEUM: No ascites or free air. BOWEL: No evidence of acute appendicitis. No stomach or bowel distension. Colonic diverticulosis without focal inflammatory bowel wall changes. LYMPH NODES: No enlarged mesenteric or retroperitoneal lymph nodes. VESSELS: Aorta is non-dilated. Upper abdominal varices. URINARY BLADDER: Minimal wall thickening with mild adjacent inflammatory stranding. REPRODUCTIVE ORGANS: No pelvic masses. ABDOMINAL WALL: Fat-containing umbilical and bilateral inguinal hernias. BONES: No acute or aggressive abnormality. CT/Abdomen/Pelvis without Cont IMPRESSION: Correlate for possible cystitis. Hepatic cirrhosis with splenomegaly and portal hypertension. Cholelithiasis. Electronically Signed: Jac Dash MD at 23:35 EST ,
[2023-06-12 23:58] VITALS: BP 138/76; PULSE 77; RESP 18; O2SAT 97
[2023-06-13] LABS: Color, Urine Amber (Yellow); Glucose, Dipstick Normal (Normal); Ketone-Dipstick 5 mg/dl (Negative); Leukocyte Esterase-Dipstick 100 /ul (Negative); Nitrite-Dipstick Negative (Negative); Occult Blood-Urine 150 /ul (Negative); Protein-Dipstick 30 mg/dl (Negative); Specific Gravity, Urine 1.025 (1.002-1.030); Urine Clarity Clear (Clear); Urine Urobilinogen 4 mg/dl (Normal)
[2023-06-13 00:02] LABS: Urine Bilirubin Dipstick 1 mg/dL (Negative)
[2023-06-13 00:10] LABS: Bacteria RARE /hpf (None Seen); Mucous, Urine 2+ /hpf (<or=2+); Red Blood Cells-Urine 0-5 SEEN /hpf (0-5); Squamous Epithelial Cells - UA 0-5 SEEN /hpf (0-5); White Blood Cells 5-10 SEEN /hpf (0-5)
[2023-06-13] MEDS: Ciprofloxacin 500 MG Tablet PO (00:34)
[2023-06-13 00:36] VITALS: BP 131/81; PULSE 85; RESP 16; O2SAT 96
== END 2023-06-13 00:36 | disposition home or self-care (01) ==
PROVIDERS: Emergency Provider Emergency Medicine; PCP Internal Medicine; Visit Provider Emergency Medicine
DX: N39.0 Urinary tract infection, site not specified (principal); F17.210 Nicotine dependence, cigarettes, uncomplicated; N50.89 Other specified disorders of the male genital organs; R30.0 Dysuria; R35.0 Frequency of micturition; N50.819 Testicular pain, unspecified; R50.9 Fever, unspecified; I10 Essential (primary) hypertension; I86.1 Scrotal varices
CPT/HCPCS: 74176; 76870; 80048; 81001; 85025; 87040; 87077; 87086; 87088; 87186; 93976; 96360; 96361; 99283; J7030; A4216

== ENCOUNTER 2023-06-14 18:10 | Emergency (ER) | payer BC, MEDICAID, SELFPAY ==
[2023-06-14 18:11] VITALS: BP 117/95; PULSE 107; RESP 18; TEMP 36.4; O2SAT 96; BMI 43.4
--- NOTE | 2023-06-14 18:31 | EDS_ITS ---
HPI History of Present Illness Chief Complaint: Male Pain/Injury Detail of Chief Complaint: Right scrotal pain for 4 days. Informant: patient Pain Onset: Days Context: Gradual Onset Timing: Continuous Current Severity: Mild Maximum Severity: Mild Narrative Narrative: 63-year-old male history of hep C. Not diabetic. Has had right scrotal discomfort for the last 4 days beginning Friday evening. He was seen in the emergency department had extensive workup felt to be at that time UTI. Was placed on Cipro 500 twice daily and has taken now for 2 days a total of 4 pills. He had an ultrasound CAT scan done on that visit also. He is complaining of discomfort to his right scrotal area with redness and swelling. No fever. No vomiting or diarrhea. Prior similar symptoms: No Recent Illness/Hospitalization: No PFSH PFSH Medical History Alcohol abuse Alcohol use Anemia Cirrhosis Elevated glucose Fatty liver GERD (gastroesophageal reflux disease) Heartburn Hepatitis Hepatitis C History of fracture of arm History of pain when walking History of stress test Hypertension Smoker Wears contact lenses Wears glasses Home Medications metformin 500 mg tablet 500 mg PO BID 02/13/23 [History Last Taken 03/11/23] ursodiol 250 mg tablet 250 mg PO Q12H 3 months #180 tabs 03/21/23 [Rx Last Taken Unknown] metoprolol tartrate 50 mg tablet 50 mg PO Q12H #180 tabs 03/27/23 [Rx Last Taken Unknown] ciprofloxacin HCl 500 mg tablet (Cipro) 500 mg PO BID #10 tabs 06/13/23 [Rx Last Taken Unknown] omeprazole 40 mg capsule,delayed release 40 mg PO DAILY 06/13/23 [History Last Taken Unknown] Allergy/AdvReac Type Severity Reaction Status Date / Time No Known Allergies Allergy Verified 06/12/23 16:59 Family History Father Pancreatic cancer Heart disease Surgical History Hx of colonoscopy with polypectomy Social History Smoking Status: Current every day smoker tobacco type: cigarettes alcohol intake: current alcohol intake frequency: 0-2 drinks per day substance use type: does not use what type of physical activity do you participate in: none ROS ROS ED ROS Narrative Denies nausea, vomiting or diarrhea. No fever. Right scrotal pain. Review of Systems ROS Unobtainable: Denies due to encephalopathy Constitutional Constitutional ED: Denies chills or fever(s) Eyes Eyes: Denies blurry vision ENT ENT ED: Denies ear pain Cardiovascular Cardiovascular: Denies chest pain or palpitations Respiratory/Chest Respiratory/Chest: Denies cough Gastrointestinal Gastrointestinal: Denies abdominal pain, constipation, diarrhea, melena, nausea or vomiting Genitourinary Genitourinary ED: Denies dysuria, hematuria or urinary frequency Musculoskeletal Musculoskeletal: Denies arthralgias, back pain, myalgias or neck pain Integumentary Denies abscess or rash Neurologic Neurologic: Denies headache(s) Psychiatric Psychiatric: Denies anxiety or depression Endocrine Endocrinology: Denies polydipsia or polyphagia Hematologic/Lymphatic Hematologic/Lymphatic: Denies easy bleeding, easy bruising or lymphadenopathy Allergic/Immunologic Allergic/Immunologic ED: Denies mouth swelling, tongue swelling or urticaria EXAM Physical Exam Narrative Exam Narrative: Well-appearing 63-year-old male. Vital signs stable afebrile. No distress. H EENT exam unremarkable. Lungs clear. Heart regular rhythm no murmur. Abdomen soft nontender, nondistended normal bowel sounds no peritoneal signs. External exam circumcised male. Right hemiscrotum is red tender and swollen. Left s margaux unremarkable. No necrotic skin. No Radha's gangrene. No protal abscess. No sloughing of skin. Moving all 4 extremities. Nontender no edema. Const Vital Signs: 06/14/23 18:11 Temperature 97.5 F L Temperature Source Temporal Pulse Rate 107 H Respiratory Rate 18 Blood Pressure 117/95 H Blood Pressure Mean 102 Pulse Ox 96 Oxygen Delivery Method Room Air Positive well nourished, well developed and obese; Negative for cachectic, contractures or unkempt General Appearance ED: well developed and NAD; Negative for unkempt, cachectic, contractures or pallor Nutritional Appearance: obese; Negative for cachectic HEENT Reports moist mucous membranes normocephalic and atraumatic; Negative for trauma or tenderness Eyes PERRL and EOMs intact bilaterally General Eye ED: Negative for pale conjunctiva or scleral icterus Neck no lymphadenopathy, supple and no JVD General: Negative for tenderness Resp normal respiratory effort and clear to auscultation bilaterally Effort and Inspection: Negative for retractions Auscultation: Negative for rales, rhonchi, wheezes or diminished lung sounds Cardio regular rate, regular rhythm, S1 normal heart sound, S2 normal heart sound and no murmurs Rate: Negative for bradycardia or tachycardic Rhythm: Negative for abnormal rhythm Heart Sounds: Negative for other GI non-tender, non-distended and no masses Inspection: Negative for abdominal distention Auscultation: normoactive bowel sounds Palpation: soft; Negative for tender or guarding no CVA tenderness Narrative: Right hemiscrotum red. Mild tenderness. No torsion. Mild swelling. No palpable mass. No abscess. No Radha's gangrene. Bladder / Kidney Exam: No CVA tenderness Groin / Perineum Exam: Negative for edema or lesions Back/Spine no CVA tenderness General Back: Negative for CVA tenderness Cervical Spine: Negative for cervical spine tenderness Thoracic Spine / Upper Back: Negative for thoracic spinal tenderness Lumbar Spine / Lower Back: Negative for lumbar spinal tenderness Extremity normal to inspection General Extremety ED: Negative for edema or pulses abnormal General Extremity: Negative for edema or pulses abnormal Neuro oriented x3, CN's II-XII intact bilaterally, moves all extremities and no focal motor deficits Sensorium / Orientation: alert, oriented to person, oriented to place and oriented to time; Negative for orientation impaired, confused, lethargic or stuporous Motor Exam: strength 5/5 throughout Psych mental status grossly normal Appearance: Negative for unkempt Attitude: No agitated Mood & Affect: Negative for depressed, anxious or tearful Thought Process: normal thought process Attention / Concentration: Negative for other Skin General Skin Exam: Negative for jaundice or pallor Lesions: no lesions Rashes: no rashes MDM MDM MDM Narrative Medical decision making narrative: 63-year-old male recent emergency department visit extensive workup including labs, urinalysis which potential UTI at that time. Scrotal ultrasound showed a right varicocele but no torsion or mass. CT abdomen showing cystitis. Presents today after 2 days of Cipro antibiotic with right scrotal swelling and redness. Consistent with a right orchitis. He is already on antibiotics. Will continue those. Outpatient follow-up with urology if not improving. There is no signs of Radha's gangrene. There is no need for any further evaluation in extensive workup 2 days ago. History & Record Review Discussion w/independent historian: Patient Additional record(s) reviewed:: Prior inpatient record, Prior outpatient record, Prior ED visit and Prior labs Lab Data Attestation: I reviewed the patient's lab results. Lab results narrative: I reviewed his recent labs from 2 days ago, urinalysis, CT and ultrasound. Discharge Plan Triage Chief Complaint: Male Pain/Injury ED Provider: Navid Verduzco Dx/Rx/DC Orders Clinical Impression: Acute orchitis Instructions: ED Orchitis Prescriptions: No Action ursodiol 250 mg tablet 250 mg PO Q12H 90 Days Qty: 180 3RF metformin 500 mg tablet 500 mg PO BID omeprazole 40 mg capsule,delayed release(DR/EC) 40 mg PO DAILY ciprofloxacin HCl [Cipro] 500 mg tablet 500 mg PO BID Qty: 10 0RF metoprolol tartrate 50 mg tablet 50 mg PO Q12H Qty: 180 3RF Primary Care Provider: Sarai Burton Referrals: Eliecer Duff MD [Med Staff - Active Staff] - 1 Week if not improving Sarai Burton MD [Primary Care Provider] - Activity Restrictions/Additional Instructions: Underwear for scrotal support. Motrin and Tylenol for pain. Continue on your antibiotics Cipro 1 pill twice a day till finished. This appears to be an infection of your right testicle called orchitis. It should improve but you need to be on antibiotics longer. If it is not getting better you need to follow-up with urologist. If it is getting a lot worse and you develop a fever and feel ill you may need to return to the ER but should not have to do that. Disposition Disposition: Home, Self Care
== END 2023-06-14 18:42 | disposition home or self-care (01) ==
LOC: ED 18:41
PROVIDERS: Emergency Provider Emergency Medicine; PCP Internal Medicine; Visit Provider Emergency Medicine
DX: N45.2 Orchitis (principal); I86.1 Scrotal varices; I10 Essential (primary) hypertension; F17.210 Nicotine dependence, cigarettes, uncomplicated; E66.9 Obesity, unspecified
CPT/HCPCS: 99282

== ENCOUNTER → 2023-07-17 | Outpatient (CLI) | payer BC, MEDICAID, SELFPAY ==
--- OUTSIDE RECORDS SUMMARY | 2023-07-17 09:53 | XMS RPT_ITS | CCD ---
Author Name Unknown Address [address] [place] [id number] Organization [facility] Results Test Name Value Interpretation Reference Range Facil ity Encounters Encounter Date Encounter Type Care Provider Facility Start: 06-12-2023 End: 06-12-2023 ambulatory Facility:[facility] Payers Date Payer Category Payer Unknown [id number] Progress note 06-12-2023 Note Date & Type Note Facility 06-12-2023 Note HNO ID: [id number] Author: Bobo Nuno MD Service: ? Author Type: Physician Type: Progress Notes Filed: 06/12/2023 4:49 PM Note Text: Patient presents with: Urinary Problem: Urgency, fever, chills, painful urination x 2 days HPI: Symptoms since yesterday. Dysuria: Yes Frequency: Yes, little production Hematuria: No. Had blood in semen this morning Nausea: No Fever or chills: Yes URI: No sore throat, nasal congestion, rhinorrhea, or cough Back pain: No Abdominal pain: No Prior UTI: No Denies past issues with urinary intermittency or hesitancy. He has Hx of urge incontinence. Personal history of kidney stones: No Family history of kidney stones: No Treatment: aleve. He has not been able to take his medicine since getting sick. Prescribed amoxicillin 05/25/23 for tooth extraction PAST MEDICAL HISTORY Diagnosis Date Yap esophagus Cirrhosis of liver (HCC) Depressive disorder, not elsewhere classified 06/23/1997 Diabetes mellitus type 2 (HCC) Essential hypertension PAST SURGICAL HISTORY Procedure Laterality Date PAST SURGICAL HISTORY OF 2006 R radius fx surgery MEDICATIONS: Current Outpatient Medications Medication Sig metFORMIN (GLUCOPHAGE) 500 mg tablet metoprolol tartrate, short acting, (LOPRESSOR) 50 mg tablet Take 1 tablet by mouth every 12 hours. ursodiol (KENA) 250 mg tablet omeprazole magnesium(PRILOSEC OTC 20 MG TAB) Take one(1) tablet daily. tadalafil(CIALIS 20 MG TAB) Take one(1) tablet 1-2 hours before sexual intercourse as needed. No current facility-administered medications for this visit. ALLERGIES: ALLERGIES No Known Allergies VITALS: BP 126/84 Pulse 104 Temp (!) 38.6 ?C (101.5 ?F) Resp 20 Wt (!) 147 kg (324 lb) SpO2 96% PHYSICAL EXAM: GEN: Alert, pleasant, lying down on exam table before visit HEENT: EOMI, conjunctiva clear, HEART: regular rate and rhythm, no murmurs LUNGS: clear to auscultation, no wheezes or crackles, no increased WOB ABDOMEN: Soft, obese BACK: No CVA tenderness : Normal external male genitalia. Bilaterally descended testicles. Right testicle is enlarged with tenderness. There is tender swelling of the cord structures behind the right testicle. No testicular masses. ASSESSMENT/PLAN: 1. Orchitis and epididymitis - ICD9: 604.90, ICD10: N45.3 (primary diagnosis) 2. Burning with urination - ICD9: 788.1, ICD10: R30.0 - UA DIP, URINE (POC) -positive for moderate blood, bilirubin, urobilinogen, and protein. No leukocyte esterase or nitrite. 3. History of cirrhosis of liver - ICD9: V12.79, ICD10: Z87.19 4. History of diabetes mellitus - ICD9: V12.29, ICD10: Z86.39 Advised ER evaluation for abscess with high fever and immune compromising comorbidities. Report sent to [facility] ER by ER passport. 5. Hematospermia - ICD9: 608.82, ICD10: R36.1 Will need follow up with urology. Bobo Nuno MD [facility] Summary Purpose Family History No Family History Records Found Advance Directives No Advanced Directives Records Found Additional Source Comments (unrecognized sect ion and content) No Status Records Found INFORMATION SOURCE (unrecogn ized section and content) FOR RECORDS PERTAINING TO PATIENTS WHO ARE OR HAVE BEEN ENROLLED IN A CHEMICAL DEPENDENCY/SUBSTANCEABUSE PROGRAM, SOME INFORMATION MAY BE OMITTED. This clinical summary was aggregated from multiple sources. Caution should be exercised in using it in the provision of clinical care. This summary normalizes information from multiple sources, and as a consequence, information in this document may materially change the coding, format and clinical context of patient data. In addition, data may be omitted in some cases. CLINICAL DECISIONS SHOULD BE BASED ON THE PRIMARY CLINICAL RECORDS. [facility]. provides no warranty or guarantee of the accuracy or completeness of information in this document.
[2023-07-17 11:37] LABS: Vitamin D,25 Hydroxy 9.5 ng/mL
[2023-07-17 11:56] LABS: Free T3 2.6 pg/mL (2.18-3.98); T4 Free Direct 0.97 ng/dL (0.76-1.46); Thyroid Stim Hormone (TSH) 6.67 uIU/mL (0.358-3.74)
== END | disposition home or self-care (01) ==
LOC: LAB 09:24
PROVIDERS: PCP Internal Medicine; Referring Provider Internal Medicine; Visit Provider Internal Medicine
DX: Z12.5 Encounter for screening for malignant neoplasm of prostate (principal); E11.9 Type 2 diabetes mellitus without complications; K81.9 Cholecystitis, unspecified; E66.9 Obesity, unspecified; I10 Essential (primary) hypertension; K21.9 Gastro-esophageal reflux disease without esophagitis; E55.9 Vitamin D deficiency, unspecified
CPT/HCPCS: 36415; 82306; 84153; 84439; 84443; 84481; G0103

== ENCOUNTER → 2023-08-01 | Outpatient (CLI) | payer BC, MEDICAID, SELFPAY ==
[2023-08-01 17:02] LABS: Hemoglobin A1c 5.6 % (3.8-5.6)
== END | disposition home or self-care (01) ==
PROVIDERS: PCP Internal Medicine; Referring Provider Internal Medicine; Visit Provider Internal Medicine
DX: R73.9 Hyperglycemia, unspecified (principal)
CPT/HCPCS: 36415; 83036

== ENCOUNTER → 2023-08-20 | Outpatient (CLI) | payer BC, MEDICAID, SELFPAY ==
--- NOTE | 2023-08-20 10:36 | NEURO ---
NCS and/or EMG Patient Report Ordering Doctor: Olayinka Norton DATE OF SERVICE: 08/20/23 Clinical Summary: 63 year old male presenting with symptoms of sensation of set and pop from the right inner proximal thigh/groin region that radiates downwards to involve the entire thigh. History of diabetes. History of lower back surgery. This EMG/NCS was performed to evaluate for lumbar radiculopathy. Nerve Conduction Studies Summary: The right sural and superficial SNAP's were absent. The right peroneal and tibial CMAP's were absent. Needle Examination Summary: Needle examination demonstrated increased insertional and spontaneous activity (positive sharp waves) in the right medial gastrocnemius muscle. There was a higher proportion of motor unit action potentials with reduced recruitment, increased amplitude, increased duration, and polyphasia in the right tibialis anterior and medial gastrocnemius muscles. Impression: There is electrodiagnostic evidence of the following - 1) Axonal, sensorimotor, peripheral polyneuropathy with active denervation There is no definite electrodiagnostic evidence of a right lumbosacral radiculopathy. Multi Select Codes Neurology Neurology Interp Codes: 08336-35 Musc test done w/n test comp (interp) (1) and 02749-56 Nrv cndj tst 3-4 studies (interp)
== END | disposition home or self-care (01) ==
LOC: PSN 09:11
PROVIDERS: PCP Internal Medicine; Referring Provider Orthopaedic Surgery Sports Medicine; Visit Provider Orthopaedic Surgery Sports Medicine
DX: M24.851 Other specific joint derangements of right hip, not elsewhere classified (principal); M25.561 Pain in right knee
CPT/HCPCS: 95886; 95908

== ENCOUNTER 2023-08-22 13:00 | Outpatient (RCR) | payer BC, MEDICAID, SELFPAY ==
--- NOTE | 2023-07-10 14:55 | HP.PTEVAL ---
Patient's Visit Information Visit Information Visit Information: JOHNNIE PARRA is a 63 year old M referred to Physical Therapy by Dr. Olayinka Norton MD with a diagnosis of Pain in R hip/ hip flexor tendonitis/snapping hip. Date of Evaluation: 07/10/23 Physical Therapist: ANDREA Gonsales Visit Plan Frequency: 2x /Week Duration: 2 Months Plan: 2X/ week for 8 weeks for R hip flexor and Quad stretch/foam rolling, strengthening of R hip flexor and extensor, core stability with HEP HEP: hip flexor stretch off the side if able at home and if not than in supine with a strap Subjective Subjective: He has no pain when he sits and he goes to stand up and has pain and hears a pop and the pain will go away. He has a zinger in his thigh. The pain started a few years ago and not it is getting worse. He was here a few years ago and thought it was his hip flexor muscle. This has been more pronounced over the last month ago. He sits for 12 hours behind a desk. He has no back pain. The Dr has nerve conduction at the end of next month. If he lays on his L side and wants to lift up up to scoot it will hurt in R hip. He can sleep on his R side without any issue. X-ray showed he thinks nothing. Stairs: no pain. He goes up recip with a railing. Pain R hip pain: Pain Intensity (Out of 10): 0 Pain Intensity Range: 8 Objective Objective: Gait: walks with increase stride length, flexed trunk, fast speed Trunk AROM: flexion 75%, Ext 75%, SB B 75%, Rot B 75% no pain Standing heel and toe raises: able but struggles a little with balance sit to stand: able to get up out of a chair without using his arms but struggles a little bit. Several times he would stand up and get a pinch in his groin and move around and it would pop and he would feel better. SLUMPT test -B except for HS tightness LE MMT: R hip flex 15 and L 11 R knee ext 26 and L 31 R knee flex 16 and 14 R hip abd 12.6and L 10.3 R hip ext 11.8 and L 14.8 Tight R hip flexor and Quad compared to the L. At the end of the session pt reported that he is getting some tingling at times in his R thigh Balance/Special Test Scores Lower Extremity Functional Score: 43 Goals Goal 1:: I HEP Goal Time Frame: 6-8 Weeks Goal 2:: Increase R hip ext strength (at time of the eval R was weaker than the L) Goal Time Frame: 6-8 Weeks Goal 3:: Be able to sit to stand without having to have his hip pop to make the pain go away before proceeding fw with gait. Goal Time Frame: 6-8 Weeks Rehabilitation Potential Rehabilitation Potential: Good Anticipated Interventions Patient/Client Instruction: Educate patient on: Condition and Plan of Care For the Purpose of:: To decrease pain, To increase ROM, To improve nutrient delivery to tissue, To improve muscle performance and motor function, To improve ability to perform ADL's, To increase tolerance to activity/condition/position, To improve performance and independence with ADL's, To decrease level of supervision to perform tasks, To improve ability of physical actions for home/community/work/leisure, To improve gait and locomotor functions, To improve health of tissue, To decrease soft tissue restriction and To increase flexibility/ROM Therapeutic Exercise to Include: Strength training, Body mechanics, Postural training, Flexibilty training, Gait and locomotor training, Neuromotor development, Passive ROM, Active ROM and Dynamic Lumbar Stabilization For the Purpose of:: To decrease pain, To increase ROM, To improve nutrient delivery to tissue, To increase oxygenation perfusion, To improve muscle performance and motor function, To improve ability to perform ADL's, To increase tolerance to activity/condition/position, To improve performance and independence with ADL's, To decrease level of supervision to perform tasks, To improve ability of physical actions for home/community/work/leisure, To improve gait and locomotor functions, To improve health of tissue, To decrease soft tissue restriction and To increase flexibility/ROM Functional Training to Include: Gait training For the Purpose of:: To improve gait and locomotor functions Manual Therapy Techniques to Include: Mobilization, Passive ROM and Soft tissue mobilization For the Purpose of:: To decrease pain, To increase ROM, To improve nutrient delivery to tissue, To improve muscle performance and motor function, To improve ability to perform ADL's, To improve performance and independence with ADL's, To decrease level of supervision to perform tasks, To improve ability of physical actions for home/community/work/leisure, To improve gait and locomotor functions, To improve health of tissue, To decrease soft tissue restriction and To increase flexibility/ROM Text: Thank you for the opportunity to evaluate your patient. For Medicare and Medicare HMO plans, please review the plan of care and approve it. It will need to be FAXED BACK to us at [phone] for Medicare purposes. For Medicare only, by signing this I certify the plan of care. Please let me know if there are questions or concerns regarding this plan of care. Physician Signature: Date:
--- NOTE | 2023-10-22 12:19 | HP.PT.NRP(2) ---
Patient Information Patient Information: JOHNNIE PARRA was seen in my office for initial evaluation on . The following Plan of Care was established for this patient: Last Seen Last Seen: This patient was last seen in our office . Pertinent comments regarding their Physical therapy will appear below: At this point I will be discontinuing this patient from physical therapy. I would be happy to see this patient again in the future if found appropriate by the physician. Thank you! Milana Gresham, MPT
== END 2023-08-22 19:00 | disposition home or self-care (01) ==
LOC: PT 13:00
PROVIDERS: PCP Internal Medicine; Referring Provider Orthopaedic Surgery Sports Medicine; Visit Provider Orthopaedic Surgery Sports Medicine
DX: M76.899 Other specified enthesopathies of unspecified lower limb, excluding foot (principal); M25.551 Pain in right hip; M24.851 Other specific joint derangements of right hip, not elsewhere classified
CPT/HCPCS: 97110; 97161

== ENCOUNTER → 2023-10-27 | Outpatient (CLI) | payer BC, SELFPAY ==
[2023-10-27 12:46] LABS: Absolute Lymphocyte Count 1.35 X10^3/uL (0.83-4.51); Absolute Neutrophil Count 3.1 X10^3/uL (2.0-7.7); Basophil# 0.04 X10^3/uL; Basophil% 0.8 % (0-1); Eosinophil# 0.19 X10^3/uL; Eosinophils% 3.7 % (0-5); Hematocrit 40.1 % (40-54); Hemoglobin 13.6 g/dL (13.0-16.5); Lymphocyte # 1.35 X10^3/ul (0.83-4.51); Lymphocyte % 26.3 % (19-41); Mean Corp Hgb Conc 33.9 g/dL (32-36); Mean Corpuscular Hgb 30.9 pg (27.0-32.0); Mean Corpuscular Volume 91.1 fL (80-94); Mean Platelet Vol. 9.4 fl (6.2-12.0); Monocyte# 0.43 X10^3/uL; Monocyte% 8.4 % (0-10); NRBC Flagged by Analyzer 0 % (0-5); Neutrophil # 3.12 X10^3/uL (2.7-7.7); Neutrophil % 60.6 % (47-70); Platelet Count 112 K/mm3 (150-450); RBC Distribution Width CV 15.5 % (11.6-14.6); RBC Distribution Width SD 51.6 fl (35.1-43.9); White Blood Count 5.1 K/mm3 (4.4-11.0)
[2023-10-27 12:55] LABS: International Normalized Ratio 1.3; Prothrombin Time (Protime)PT. 15.7 SECONDS (11.7-14.9)
[2023-10-27 13:06] LABS: Hemoglobin A1c 4.3 % (3.8-5.6)
[2023-10-27 13:21] LABS: ALB/GLOB Ratio 0.7 RATIO (0.9-2.4); AST(SGOT) 16 U/L (15-37); Alanine Aminotransfer ALT/SGPT 17 U/L (16-61); Albumin, Serum 3.2 g/dL (3.2-5.0); Alkaline Phosphatase 71 U/L (45-117); Anion Gap 4 (5-15); BUN 12 mg/dL (7-18); BUN/Creat Ratio 16.9 RATIO (10-20); CRP < 2.90 mg/L (0.0-3.0); Calcium,Total 8.8 mg/dL (8.5-10.1); Chloride 112 mmol/L (98-107); Cholesterol 120 mg/dL (200); Creatinine, Serum 0.71 mg/dL (0.70-1.30); EST Glomerular Filtration Rate 120 mL/min (>60); Est Glom Filt Rate - Afr Amer 145 mL/min (>60); Globulin 4.5 g/dL (2.2-4.2); Glucose 126 mg/dL (74-106); High Density Lipoprotein 49 mg/dL; Potassium 3.7 mmol/L (3.5-5.1); Protein, Total 7.7 g/dL (6.4-8.2); Sodium Level 142 mmol/L (136-145); Triglycerides 62 mg/dL; Very Low Density Lipoprotein 12 mg/dL (5-40)
[2023-10-27 13:25] LABS: Free T3 2.3 pg/mL (2.18-3.98); T4 Free Direct 0.95 ng/dL (0.76-1.46); Thyroid Stim Hormone (TSH) 4.68 uIU/mL (0.358-3.74)
[2023-10-28 13:08] LABS: AFP, Tumor Marker 4.5 ng/mL (0.0-8.4)
== END | disposition home or self-care (01) ==
LOC: LAB 12:19
PROVIDERS: PCP Internal Medicine; Referring Provider Internal Medicine; Visit Provider Internal Medicine
DX: R79.89 Other specified abnormal findings of blood chemistry (principal); K74.60 Unspecified cirrhosis of liver; E66.9 Obesity, unspecified
CPT/HCPCS: 36415; 80053; 80061; 82105; 82140; 83036; 84439; 84443; 84481; 85025; 85610; 86140

== ENCOUNTER 2024-01-22 06:58 | Day surgery (SDC) | payer BC, SELFPAY ==
[2024-01-22] VITALS (9 sets, daily range): BP systolic 95–133; BP diastolic 62–91; PULSE 79–86; RESP 14–16; TEMP 36.2–37.1; O2SAT 92–97; BMI 37.5
--- NOTE | 2024-01-22 | IMM_PTH ---
PATIENT: JOHNNIE PARRA LOC: EN U#:[id number] AGE/SX: 63/M ROOM: RE01/22/[address]: Dr. Chris Hoskins DO : 1960 BED: DIS: 01/22/2024 SPEC #: [id number] RECD: 01/22/24 12:03 STATUS: SHAWN REQ #: [id number] JOSI: 01/22/24 00:[address]: Chris Hoskins DEPT: IMMUNOHISTOCHEMISTRY RECD BY: Norman Lund ENTERED: 01/22/24 12:04 SP TYPE: IMMUNO OT DR: Dr. Sarai Burton MD Tissues: B - Gastric mucous membrane Procedures: H Pylori (initial) PHYSICIAN & INSTITUTION [place] [id number] SPECIMEN INFORMATION: Tissue Source: B- Gastric cardia biopsy Clinical Info: Cirrhosis, obesity Specimen Number: [id number] CPT code: 73330 METHODOLOGY: Deparaffinized sections of prefer/formalin-fixed tissue or PAP/DQ stained slides are incubated with monoclonal/polyclonal antibodies/oligonucleotide probes. Localization is made via biotin free immunoperoxidase method. Appropriate controls are performed and reacted as expected. Results on target cell population are indicated in the following table: RESULTS: ANTIBODY / CLONE RESULT Block B H Pylori (polyclonal) negative These tests were developed and their performance characteristics determined by [facility]. They may not have been cleared or approved by the U.S. Food and Drug Administration. The FDA has determined that such clearance or approval is not necessary. The above immunohistochemical/dualISH markers are ordered and reviewed by the Pathologist. INTERPRETATION: B. Gastric cardia, biopsy: Negative for Helicobacter pylori organisms. ABHI/ 01/23/2024
--- NOTE | 2024-01-22 07:22 | HP.PCM_ITS ---
History and Physical Date of Admission: 01/22/24 JOHNNIE PARRA, is a 63 M who presents to the office today for follow up. FH pancreatic cancer, father resulting in at age 76. PCP workup: Biochemical workup Fibrosure results indicate cirrhosis. AST 94/ALT 137/ Alk Phos 125. Albumin 2.9. Hgb A1c 6.5 (PCP addressed with low fats/carbohydrate foods). HCV QT 1010,000 HCV log10 6.004 HCV [id number] *[facility] established 12.12.21 with referral from his PCP for liver disease. He was infected with HCV 30+ years prior with remote establishment with hepatology around 2006 without treatment. He did have some IV drug use around age 20, no blood transfusions, out of country living or tattoos. He is undergoing court mandated treatment for alcohol abuse though he continues to drink alcohol sporadically. He is attempted to get Antabuse next week and is undergoing counseling; vivitrol was ineffective and caused HTN. Has been drinking excessively for at least the last five years. Biochemical workup HIV, CMP, CRP, ferritin, LDH, coagulation, CBC, ESR, anti mitochondrial ab, EMILY comp, hepatitis screen, AFP, ANCA, ASM ab, ceruloplasmin, copper, haptoglobin without pertinent abnormalities. A1c H6.6, Ammonia H48, AST H63/ALT H106/ Alk phos H147, Albumin L2.9, TIEN H117, AFP H11.6 US RUQ and elastography 12.19.21 liver measure 21.2cm with fatty infiltration; Stiffness 13.5 kPa. Liver biopsy 12.20.21 cirrhosis with distortion of normal lobular architecture into multiple nodules with macro/microvesicular steatosis; chronic inflammation and ductular proliferation; absent iron; no accumulation of protein. EGD and colonoscopy 02.26.22. EGD irregular Zline 40cm, metaplasia +; small hiatal hernia; portal HTN gastropathy; oozing gastric ulcer with visible vessel, bipolar cautery; non-bleeding gastric ulcer. H.Pylori neg. Colonoscopy diverticulosis; three 1-2mm TA and hyperplastic polyps. OV 03.06.22 continued alcohol intake; working on seeking addiction treatment. Prefers Antabuse rather than vivitrol r/t HTN. Biochemical workup ESR, coagulation, CBC, LDH, ammonia, CRP without pertinent abnormality. AST H85/ALT H119/alk phos H141, albumin L3.0 Start Epclusa 03.08.22 Biochemical workup Hepatitis C quantitative, log10 without abnormality. OV 05.29.22 with report that he is stable and doing well overall. Biochemical workup CBC, coagulation, CMP (t.bili H1.40), LFT, AFP, Hep A/B without pertinent abnormality. HCV ab + 11; HCV Quant not detected. [facility] ED 1.10.13 with abdominal pain imaging performed with possible cholecystitis; HIDA without signs of cholecystitis and discharged home with dicyclomine. OV 08.15.22 HCV, cirrhosis, alcohol abuse, cholecystitis. Biochemical workup. Start ursodiol. Biochemical workup CMP, coagulation, CBC without pertinent abnormality. HCV ab +, Quant not detected. OV 11.14.22 doing well. Continues with alcohol consumption. EGD 03.13.23 Yap?s mucosa, metaplasia +; portal HTN gastropathy; three gastric polyps, metaplasia +; erythematous duodenopathy OV 03.21.23 continues to be doing well without pruritis, confusion, ascites, changes in balance (has knee problem). Alcohol use continues. MELDna Platelet 12.12.21 7 80 09.14.22 10 -- 07.01.22 11 96 08.15.22 10 117 11.14. 9 84 10.27.23 9 112 OV 1.5.2- Pt doing well since last visit. Is not having any abdominal pain, dizziness, confusion, or swelling. BM are normal. Continues to drink alcohol a few times a week. Reports diarrhea when drinking. Usually 48 ounces of Briana mix over course of 1-2 days, occasionally whisky. completed Epclusa 3 months in 2021. HCV RNA quant negative. OV 5..24- Patient well since last visit. Is not having any abdominal pain, dizziness, confusion or swelling. Is working on weight loss. No issues with BM. Takes all medications as prescribed. Patient states he drinks beer about 2-3 about 3-4 times a week. ROS Const Constitutional: Positive for weight change; No fatigue or fever(s) ENT ENT: No difficulty swallowing Gastro GI: No abdominal pain, belching, bloating, change in bowel habits, change in s tool character, coffee ground emesis, constipation, cramping, diarrhea, heartburn, difficulty swallowing, feeling full early, excessive flatus, incontinent of stools, Vomiting blood/hematemesis, Blood in stool, loose stools, Black,tarry stools, nausea/dyspepsia, pain with swallowing, vomiting or other [facility] Musculoskeletal: No joint pain Skin Skin: No yellowing of the eye or itchy eyes Psych Psychiatric: No anxiety and No depression Endo Endocrine: Positive for weight change; No fatigue Aller/Imm Allergy/Immunologic: No itchy eyes Fish/Lymp Hematologic/Lymphatic: No easy bleeding or easy bruising Exam Const General: cooperative, no acute distress and well developed Nutritional Appearance: obese Orientation: alert, awake and oriented x3 Other: BMI 42.0% improved to 40.1 kg/m?. Body weight 296 pounds. [facility] Head: normocephalic and atraumatic Nose: external nose normal Face and sinus: normal facial exam Mouth: moist mucous membranes Eyes Pupils: PERRL EOM: EOM intact bilaterally Neck Neck: normal visual inspection, no meningeal signs and trachea midline Carotids: no bruits Chest Chest palpation & inspection: normal inspection of the chest Resp Effort & Inspection: normal respiratory effort and symmetric chest movement Auscultation: Bilateral: Clear to Auscultation Cardio Palpation: normal PMI Rate: regular rate Rhythm: regular rhythm Heart Sounds: S1 normal and S2 normal GI Auscultation: normal bowel sounds Percussion: normal to percussion Palpation: soft and no guarding Other: Large fat abdomen. Liver/spleen could not be palpated. General: bimanual renal exam normal bilaterally, bladder normal to inspection and bladder normal to palpation Other: Recent UTI diagnosed in ED. Denies dysuria. Completed Cipro. [facility] Musculoskeletal: No joint tenderness, joint redness, joint warmth or decreased range of motion Thoracic/Lumbar Spine: thor and lumb spine abnorm to inspection Skin General: rashes and/or lesions noted, turgor normal and no erythema Wounds: wound noted Neuro General: patient alert, patient awake, patient oriented x3 and no focal motor deficits Speech: speech normal Motor: muscle tone normal throughout Extrem General: normal exam except as noted Other: No significant pedal edema Psych Appearance: grossly normal Mood: congruent mood Affect: normal affect Attitude: cooperative Assessment and Plan Assessment and Plan (1) Cirrhosis: Status: Chronic Qualifiers: Hepatic cirrhosis type: alcoholic cirrhosis Ascites presence: without ascites Qualified Code(s): K70.30 - Alcoholic cirrhosis of liver without ascites Plan: His cirrhosis may be multifactorial alcoholic, HCV and MASLD. Chronic HCV infection treated. Patient is still drinks about 2-3 beers, 2-3 times a week. He states he has cut down 90% of alcohol. Completed 3-month course of Epclusa. HCV RNA quantitative negative in July 2022. Patient was counseled to quit alcohol. EGD from March 15, liver biopsy December 21, [address] abdomen reviewed. Liver biopsy consistent with cirrhosis. 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 Biopsied. - Portal hypertensive gastropathy. - Three gastric polyps. Resected and retrieved. - Erythematous duodenopathy. Biopsy distal esophagus and gastric body polyp negative for dysplasia. Negative for H. pylori.GE mucosa with focal intestinal metaplasia/goblet cell metaplasia consistent with Yap's esophagus. Negative for dysplasia. Chronic inflammation. Recent CT abdomen without contrast in 06/11/2023 shows cirrhotic liver with no mass. Splenomegaly, accessory splenule. Calcified gallstones no GB distention or wall edema. No intra or extrahepatic biliary ductal dilatation. Plan: MELD sodium score 9. Child score a. Continue nadolol. Pantoprazole 40 mg twice daily changed to 40 mg once daily. Schedule EGD next 2 to 3-month. CT triple vaginal ordered but not done. aFP normal. Vitamin D 25-hydroxy low. TSH elevated but free T4 normal possible subclinical hypothyroidism. Labs ordered. Patient on metformin and teriparatide for weight loss. A1c normal. Follow-up in 3 months. (2) Obesity: Status: Chronic Qualifiers: Obesity type: due to excess calories Plan: Improvement in body weight and A1c. Medications: Changed From omeprazole 40 mg PO BID To omeprazole 40 mg PO DAILY 1 month 30 caps 6RF I have examined the patient and the H&P has been reviewed. There are no clinical changes since date of exam.
[2024-01-22] MEDS: Lactated Ringers 1,000 ML 15 ML IV (07:26)
--- NOTE | 2024-01-22 07:26 | PRE.ANES_ITS ---
ASA Classification* ASA Classification ASA Classification: 3 Assessment & Plan Anesthesia* Anesthesia Assessment Anesthesia Assessment: Discussed sedation and/or anesthesia options, risks, benefits, and alternatives with patient/parents/legal guardian/POA. Questions invited. The patient/parents/legal guardian/POA seems to understand and agrees to proceed with anesthesia plan. Reviewed the physical assessment, medical history, allergy history and patient home medications list prior to surgery/procedure/anesthetic and documented any changes. Performed airway and anesthesia risk assessments. Anesthesia Type Anesthesia Type: MAC Anesthesia Focused Assessment* Temperature: 98.8 F Pulse Rate: 86 Blood Pressure: 133/91 Respiratory Rate: 16 Pulse Ox: 97 Airway Assessment Mouth opens: >3 cm Mallampati Score: II Focused Labs Anesthesia Preop lab: CBC WBC 5.1 K/mm3 (4.4-11.0) 10/27/23 12:23 RBC 4.40 M/mm3 (4.6-6.2) L 10/27/23 12:23 Hgb 13.6 g/dL (13.0-16.5) 10/27/23 12:23 Hct 40.1 % (40-54) 10/27/23 12:23 Plt Count 112 K/mm3 (150-450) L 10/27/23 12:23 CHEMISTRY Potassium 3.7 mmol/L (3.5-5.1) 10/27/23 12:23 Sodium 142 mmol/L (136-145) 10/27/23 12:23 Magnesium 2.0 mg/dL (1.6-2.6) 10/17/21 11:31 BUN 12 mg/dL (7-18) 10/27/23 12:23 Creatinine 0.71 mg/dL (0.70-1.30) 10/27/23 12:23 Glucose 126 mg/dL (74-106) H 10/27/23 12:23 POC Glucose 150 mg/dL (74-106) H 03/13/23 08:06 TSH 4.68 uIU/mL (0.358-3.74) H 10/27/23 12:23 COAG PT 15.7 SECONDS (11.7-14.9) H 10/27/23 12:23 Pre-Assessment Diagnosis/Proposed Procedure Planned Operative Procedure(s): EGD Anesthesia History 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 When Was Last Pacemaker Check QUESTION #4 FULL TEXT: You/Your Family Experience fever (hyperthermia) with Anesthesia Last Oral Intake Last Oral intake: Last Oral Intake NPO since Meds taken in AM with sips of water? 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 salesperson retail Female No 01/21/24 10:53 HX of Motion Sickness No 01/21/24 10:53 HX of N/V After Surgery No 01/21/24 10:53 Non-Smoker No 01/21/24 10:53 Duration of Surgery greater No 01/21/24 10:53 than 60 minutes Number of Risk Factors PONV Score Height & Weight Height & Weight: Anesthesia: Height & Weight Height 6 ft 01/22/24 07:20 Weight: 125.4 kg 01/22/24 07:20 Body Mass Index (BMI) 37.5 01/22/24 07:20 Respiratory Assessment Respiratory Assessment - computer salesperson retail: Respiratory Tract Infection Hx - computer salesperson retail Hx Respiratory Tract Infection No 01/21/24 10:53 STOP Sleep Apnea STOP Sleep Apnea - computer salesperson retail: STOP Sleep Apnea - computer salesperson retail Hx Hypertension Yes 01/21/24 10:53 Hx Sleep Apnea No 01/21/24 10:53 CPAP BIPAP Do you snore loudly (louder No 01/21/24 10:53 than talking or can be heard Do you often feel tired/ No 01/21/24 10:53 fatigued/ sleepy during daytime? Has anyone observed you stop No 01/21/24 10:53 breathing during sleep? STOP Results Negative 01/21/24 10:53 QUESTION #5 FULL TEXT : Do you snore loudly (louder than talking or can be heard through closed doors)? 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 Specify any problems Hx of Preganancy in last 3 N/A 01/21/24 10:53 Months Nurse Filling Out Transfusion [id number] 01/21/24 10:53 & Questions: Date: 01/21/24 01/21/24 10:53 Time: 11:00 01/21/24 10:53 Patient unable to answer at this time (ie. confused, unrespo /Reproduction History /Reproductive History - computer salesperson retail: /Reproductive Hx- computer salesperson retail Hx Now Gestational Age (in weeks): EDC: Hx Hx Para Hx Section SAB No 01/21/24 10:53 Active Medications Active Medications: Current Medications Generic Name Dose Route Start Last Admin Trade Name Freq PRN Reason Stop Dose Admin Lactated Ringer's 1,000 mls @ 15 mls/hr 01/22/24 07:15 IV .Q48H JAVIER PFSH Medical History Right snapping hip Hypertension Alcohol use Heartburn Elevated glucose Wears contact lenses Wears glasses Anemia Fatty liver Cirrhosis Hepatitis History of pain when walking History of stress test Smoker Hepatitis C GERD (gastroesophageal reflux disease) Alcohol abuse History of fracture of arm Home Medications ?Medication ?Instructions ?Recorded ?Last Taken ?Type metformin 500 mg tablet 500 mg PO BID 02/13/23 03/11/23 History ursodiol 250 mg tablet 250 mg PO Q12H 3 months #180 tabs 03/21/23 Unknown Rx tirzepatide 5 mg/0.5 mL 5 mg subcut QWEEK 09/12/23 01/12/24 History subcutaneous pen injector omeprazole 40 mg capsule,delayed 40 mg PO DAILY 1 month #30 caps 10/29/23 Unknown Rx release nadolol 20 mg tablet 20 mg PO DAILY 1 month #30 tabs 12/26/23 Unknown Rx Allergy/AdvReac Type Severity Reaction Status Date / Time No Known Allergies Allergy Verified 01/22/24 07:20 Family History Father Pancreatic cancer Heart disease Surgical History Hx of colonoscopy with polypectomy Social History Smoking Status: Current every day smoker tobacco type: cigarettes alcohol intake: current alcohol intake frequency: 0-2 drinks per day substance use type: does not use what type of physical activity do you participate in: none Review of Systems (Anesthesia) ROS Narrative System reviewed and no additional complaints, except as documented.
[2024-01-22 07:47] LABS: Bedside Glucose 84 mg/dL (74-106)
--- NOTE | 2024-01-22 08:00 | EGD_PTH ---
PATIENT: JOHNNIE PARRA LOC: EN U#:[id number] AGE/SX: 63/M ROOM: RE01/22/[address]: Dr. Chris Hoskins DO : 1960 BED: DIS: 01/22/2024 SPEC #: [id number] RECD: 01/22/24 09:22 STATUS: SHAWN RECasper #: [id number] JOSI: 01/22/24 08:[address]: Chris Hoskins DEPT: SURGICAL PATHOLOGY RECD BY: Michelle Dumont ENTERED: 01/22/24 11:40 SP TYPE: EGD BIOPSY DEMARIO DR: Dr. Sarai Burton MD Tissues: A - Esophagus, NOS B - Gastric mucous membrane Procedures: Special Stain Group I Surgery Specimen Level IV Alcian Blue/PAS (control) HEADER OPERATION: EGD with biopsies PRE-OP DIAGNOSIS: Cirrhosis, obesity TISSUE SUBMITTED: A- Distal esophagus biopsy, B- Gastric cardia biopsy MICROSCOPIC DIAGNOSIS A. Distal esophagus, biopsy: Fragments of gastroesophageal mucosa with chronic inflammation. Intestinal metaplasia (goblet cell metaplasia) not identified. See comment. B. Gastric cardia, biopsy: Mild gastritis. See microscopic description and comment. ABHI/ 02/18/2024 COMMENT A. Alcian blue/PAS stain with matched control is used in the evaluation of the specimen. B. The results of immunohistochemistry for Helicobacter pylori will be reported separately ([id number]). MICROSCOPIC DESCRIPTION Slides are reviewed. B. The specimen shows fragments of gastric mucosa with chronic inflammatory cell infiltrates in the lamina propria consisting of lymphocytes and plasma cells, consistent with mild chronic gastritis. GROSS DESCRIPTION A. Received in fixative is one container labeled with the patient's name and designated Distal esophagus biopsy. The specimen consists of multiple irregular fragments of light griffin soft tissue that in aggregate measure 1.2 x 0.3 x 0.1 cm. The specimen is totally submitted in one cassette. B. Received in fixative is one container labeled with the patient's name and designated Gastric cardia biopsy. The specimen consists of multiple irregular fragments of light griffin soft tissue that in aggregate measure 0.8 x 0.8 x 0.1 cm. The specimen is totally submitted in one cassette. Tania 01/22/2024 TC:3 CPT:55829q9,62361
--- NOTE | 2024-01-22 08:13 | OP.EGD_ITS ---
Patient Name: Darrin Garvin Procedure Date: 01/22/2024 7:54 AM Date of : 1960 Age: 63 Procedure: Upper GI endoscopy Indications: Yap's esophagus, Cirrhosis with suspected esophageal varices Providers: Chris Hoskins DO Medicines: Monitored Anesthesia Care Patient Profile: This is a 63 year old male. Refer to note in patient chart for documentation of history and physical. Patient has symptoms of acute heartburn. Complications: No immediate complications. Procedure: Pre-Anesthesia Assessment: - Prior to the procedure, a History and Physical was performed, and patient medications and allergies were reviewed. The risks and benefits of the procedure and the sedation options and risks were discussed with the patient. All questions were answered and informed consent was obtained. Patient identification and proposed procedure were verified by the physician in the pre-procedure area. Mental Status Examination: alert and oriented. Airway Examination: normal oropharyngeal airway and neck mobility. Respiratory Examination: clear to auscultation. CV Examination: normal. Prophylactic Antibiotics: The patient does not require prophylactic antibiotics. Prior Anticoagulants: The patient has taken no anticoagulant or antiplatelet agents. ASA Grade Assessment: II - A patient with mild systemic disease. After reviewing the risks and benefits, the patient was deemed in satisfactory condition to undergo the procedure. The anesthesia plan was to use monitored anesthesia care (MAC). Immediately prior to administration of medications, the patient was re-assessed for adequacy to receive sedatives. The heart rate, respiratory rate, oxygen saturations, blood pressure, adequacy of pulmonary ventilation, and response to care were monitored throughout the procedure. The physical status of the patient was re-assessed after the procedure. After obtaining informed consent, the endoscope was passed under direct vision. Throughout the procedure, the patient's blood pressure, pulse, and oxygen saturations were monitored continuously. The Endoscope was introduced through the mouth, and advanced to the second part of duodenum. The upper GI endoscopy was accomplished without difficulty. The patient tolerated the procedure well. Scope In: 8:02:55 AM Scope Out: 8:09:11 AM Total Procedure Duration Time 0 hours 6 minutes 16 seconds Findings: There were esophageal mucosal changes secondary to established long-segment Yap's disease present in the lower third of the esophagus. The maximum longitudinal extent of these mucosal changes was 5 cm in length. Mucosa was biopsied with a cold forceps for histology in a targeted manner at intervals of 1 cm in the lower third of the esophagus. One specimen bottle was sent to pathology. Verification of patient identification for the specimen was done. Estimated blood loss was minimal. Moderate portal hypertensive gastropathy was found in the entire examined stomach. Biopsies were taken with a cold forceps for histology. Verification of patient identification for the specimen was done. Estimated blood loss was minimal. Biopsies were taken with a cold forceps for Helicobacter pylori testing. Verification of patient identification for the specimen was done. Estimated blood loss was minimal. The second portion of the duodenum was normal. Impression: - Esophageal mucosal changes secondary to established long-segment Yap's disease. Biopsied. - Portal hypertensive gastropathy. Biopsied. - Normal second portion of the duodenum. Recommendation: - Await pathology results. - Repeat upper endoscopy for surveillance. - Continue present medications. Procedure Code(s): --- Professional --- 41608, Esophagogastroduodenoscopy, flexible, transoral; with biopsy, single or multiple CPT copyright 2021 [employer]. All rights reserved. The codes documented in this report are preliminary and upon mold maintenance technician review may be revised to meet current compliance requirements. Chris Hoskins DO 01/22/2024 8:13:05 AM This report has been signed electronically. Number of Addenda: 0 Note Initiated On: 01/22/2024 7:54 AM
--- NOTE | 2024-01-22 08:14 | OP.CCLET_ITS ---
01/22/2024 Sarai Burton [facility] [address] [place] [address] Re : Upper GI endoscopy procedure for Darrin Garvin Dear Dr. Burton This procedure was performed on January. My impressions and recommendations are as follows: Impressions : - Esophageal mucosal changes secondary to established long-segment Yap's disease. Biopsied. - Portal hypertensive gastropathy. Biopsied. - Normal second portion of the duodenum. Recommendations : - Await pathology results. - Repeat upper endoscopy for surveillance. - Continue present medications. My findings are described in the full procedure note, which is enclosed. If I can be of further assistance, please feel free to contact me at . Sincerely, Chris Hoskins, 01/22/2024 8:13:05 AM This report has been signed electronically.
--- NOTE | 2024-01-22 08:17 | PCM.POST.ANE ---
Anesthesia: Postop Eval I Current Vital Signs Temperature: 97.5 F Pulse Rate: 84 Blood Pressure: 95/62 Respiratory Rate: 14 Pulse Ox: 92 Oxygen Delivery Method: Room Air Assessment Airway patent: Yes Spontaneous unlabored respirations: Yes Mental status: Asleep nausea: No Vomiting: No Anesthesia Complication: No Fluid Hydration Crystalloid volume administer (ml): 400 Total IV fluid infused: 400 Progress Note Anesthesia document: Postop Eval 1 completed: Yes
--- NOTE | 2024-01-22 08:44 | PCM.POSTANE2 ---
Anesthesia Postop Eval I Sum Postop Eval Completion status Anesthesia document: Postop Eval 1 completed: Yes Anesthesia Postop Eval I Summary Anesthesia Postop Eval I Summary: Anesthesia Postop Eval I: Assessment Summary Airway patent Yes 01/22/24 08:18 [email or web address] Spontaneous unlabored Yes 01/22/24 08:18 [email or web address] respirations Mental status Asleep 01/22/24 08:18 [email or web address] nausea No 01/22/24 08:18 [email or web address] Vomiting No 01/22/24 08:18 [email or web address] Anesthesia Postop Eval I: Fluid Summary Crystalloid volume administer 400 01/22/24 08:18 [email or web address] (ml) Colloids volume administered ( ml) Blood Product volume administered (ml) Total IV fluid infused 400 01/22/24 08:18 [email or web address] Anesthesia Postop Eval I: Summary Notes Anesthesia Complication No 01/22/24 08:18 [email or web address] Anesthesia Complication Comment: Post-operative progress note Anesthesia: Postop Eval II Evaluation Mental status: Awake Pain Level: 0 nausea: No Vomiting: No
== END 2024-01-22 09:02 | disposition home or self-care (01) ==
LOC: EN 07:01 → AC 07:02
PROVIDERS: PCP Internal Medicine; Referring Provider Internal Medicine; Visit Provider Internal Medicine Gastroenterology
PROC: 0DJ08ZZ Inspection of Upper Intestinal Tract, Via Natural or Artificial Opening Endoscopic (ICD-10-PCS; CPT 43235; principal; 2024-01-22 07:55)
DX: K22.70 Barrett's esophagus without dysplasia (principal); K76.6 Portal hypertension; K70.30 Alcoholic cirrhosis of liver without ascites; Z68.41 Body mass index [BMI] 40.0-44.9, adult; K29.70 Gastritis, unspecified, without bleeding; E66.9 Obesity, unspecified; K21.9 Gastro-esophageal reflux disease without esophagitis; I10 Essential (primary) hypertension; F17.200 Nicotine dependence, unspecified, uncomplicated; Z79.84 Long term (current) use of oral hypoglycemic drugs; Z79.899 Other long term (current) drug therapy
CPT/HCPCS: 43239; 82962; 88305; 88312; 88342; J7120; J2405

== ENCOUNTER → 2024-06-03 | Outpatient (CLI) | payer BC, SELFPAY ==
--- NOTE | 2024-06-03 07:48 | US_ITS ---
STUDY: ABDOMINAL ULTRASOUND - RIGHT UPPER QUADRANT; ELASTOGRAPHY REASON FOR VISIT: Male, 64 years old. Cirrhosis. Portal hypertension. TECHNIQUE: Ultrasound evaluation of the right upper quadrant was performed with real-time and static parks-scale imaging. Point quantification shear wave elastography was performed ([email or web address]). TECHNICAL QUALITY: Adequate. COMPARISON: Comparison is made with prior study dated June 26, 2022. FINDINGS: Liver: The liver is enlarged and measures 19 cm. There is a heterogeneous echogenicity of the liver. The bile ducts are within normal limits. There is hepatic color flow. The direction of portal flow is hepatopetal. There is no demonstrated mass lesion. Median liver stiffness measured 18.8 kPa. There is evidence of a varices in the splenic hilum. Gallbladder: Normal distended gallbladder. The gallbladder wall is thickened and measures 6 mm. There is a negative sonographic Argueta''s sign. There is no pericholecystic fluid. There are multiple echogenic structures within the gallbladder, consistent with multiple gallstones. Common Bile Duct (C.B.D.): The common bile duct measures 7 mm. Pancreas: There is normal echogenicity of the visualized pancreas. There is no demonstrated pancreatic mass or cyst. Right Kidney: Normal size of the right kidney. The right kidney measures 12.8 cm x 6.4 cm x 4.8 cm. Normal renal cortex. The right cortex measures 1.4 cm. There is no demonstrated renal mass or cyst. There is no right hydronephrosis. IMPRESSION: 1. Liver stiffness measures 18.8 kPa compatible with F3-F4 (Moderate to severe liver fibrosis) Metavir score. 2. Multiple gallstones and thickened gallbladder wall. Electronically Signed: Davi Malik MD at 13:56 EST , STUDY: ABDOMINAL ULTRASOUND - LEFT UPPER QUADRANT REASON FOR EXAM: Male, 64 years old. Cirrhosis, portal hypertension -- Including spleen TECHNIQUE: Transabdominal ultrasound was performed with real-time and static parks scale imaging. TECHNICAL QUALITY: Adequate. COMPARISON: None. FINDINGS: Spleen: There is splenomegaly. The spleen measures 16.5 cm x 9.9 cm x 7.5 cm. US/ABD Limited w/ Elastography IMPRESSION: Splenomegaly. Electronically Signed: Davi Malik MD at 13:56 EST ,
== END | disposition home or self-care (01) ==
LOC: US 07:47
PROVIDERS: PCP Internal Medicine; Referring Provider Internal Medicine; Visit Provider Internal Medicine
DX: K70.30 Alcoholic cirrhosis of liver without ascites (principal); E11.9 Type 2 diabetes mellitus without complications; E66.9 Obesity, unspecified
CPT/HCPCS: 76705; 76981

== ENCOUNTER → 2024-07-02 | Outpatient (CLI) | payer BC, SELFPAY ==
[2024-07-02 09:51] LABS: Absolute Lymphocyte Count 1.48 X10^3/uL (0.83-4.51); Absolute Neutrophil Count 4.4 X10^3/uL (2.0-7.7); Basophil# 0.06 X10^3/uL; Basophil% 0.9 % (0-1); Eosinophil# 0.22 X10^3/uL; Eosinophils% 3.3 % (0-5); Hematocrit 43.1 % (40-54); Hemoglobin 14.7 g/dL (13.0-16.5); Lymphocyte # 1.48 X10^3/ul (0.83-4.51); Mean Corp Hgb Conc 34.1 g/dL (32-36); Mean Corpuscular Hgb 29.7 pg (27.0-32.0); Mean Corpuscular Volume 87.1 fL (80-94); Mean Platelet Vol. 8.8 fl (6.2-12.0); Monocyte# 0.52 X10^3/uL; Monocyte% 7.7 % (0-10); NRBC Flagged by Analyzer 0 % (0-5); Neutrophil # 4.42 X10^3/uL (2.7-7.7); Neutrophil % 65.7 % (47-70); Platelet Count 141 K/mm3 (150-450); RBC Distribution Width CV 14.6 % (11.6-14.6); RBC Distribution Width SD 46.5 fl (35.1-43.9); Red Blood Count 4.95 M/mm3 (4.6-6.2); White Blood Count 6.7 K/mm3 (4.4-11.0)
[2024-07-02 10:05] LABS: International Normalized Ratio 1.2; Prothrombin Time (Protime)PT. 15.2 SECONDS (11.7-14.9)
[2024-07-02 10:15] LABS: ALB/GLOB Ratio 0.8 RATIO (0.9-2.4); AST(SGOT) 17 U/L (15-37); Alanine Aminotransfer ALT/SGPT 17 U/L (16-61); Albumin, Serum 3.4 g/dL (3.2-5.0); Alkaline Phosphatase 79 U/L (45-117); Anion Gap 5 (5-15); BUN 11 mg/dL (7-18); BUN/Creat Ratio 14.4 RATIO (10-20); Calcium,Total 8.7 mg/dL (8.5-10.1); Chloride 110 mmol/L (98-107); Creatinine, Serum 0.76 mg/dL (0.70-1.30); EST Glomerular Filtration Rate 110 mL/min (>60); Est Glom Filt Rate - Afr Amer 133 mL/min (>60); Globulin 4.3 g/dL (2.2-4.2); Glucose 143 mg/dL (74-106); LDH 163 U/L (87-241); Potassium 3.9 mmol/L (3.5-5.1); Protein, Total 7.7 g/dL (6.4-8.2); Sodium Level 139 mmol/L (136-145)
[2024-07-02 10:17] LABS: Vitamin D,25 Hydroxy 9.1 ng/mL
[2024-07-03 08:10] LABS: AFP, Tumor Marker 4.8 ng/mL (0.0-8.4)
== END | disposition home or self-care (01) ==
PROVIDERS: PCP Internal Medicine; Referring Provider Internal Medicine; Visit Provider Internal Medicine
DX: K70.30 Alcoholic cirrhosis of liver without ascites (principal); E11.9 Type 2 diabetes mellitus without complications; E66.9 Obesity, unspecified
CPT/HCPCS: 36415; 80053; 82105; 82140; 82306; 83615; 85025; 85610

== ENCOUNTER → 2024-09-02 | Outpatient (CLI) | payer BC, SELFPAY ==
--- NOTE | 2024-09-02 06:37 | MRI_ITS ---
PROCEDURE: SPINE LUMBAR (ROUTINE) (MRISPL), 09/02/2024 REASON FOR EXAM: RIGHT LUMBAR RADICULOPATHY TECHNIQUE: Multisequence multiplanar MR of the lumbar spine was performed without IV contrast. COMPARISON: 07/04/2023 FINDINGS: Sagittal T1 sequence limited by signal loss along the anterior half of the field of view. Vertebral body heights are preserved. Heterogeneous marrow signal. Degenerative type marrow signal changes greatest at L2-L3 and L5-S1. Similar mild grade 1 anterolisthesis at L3-L4. Trace retrolisthesis at L4-L5 and L5-S1, difficult to evaluate previously. Grossly similar mild thoracolumbar levoscoliosis. Conus medullaris terminates normally at the L1 level. Crowding of the cauda equina related to the below stenoses. T12-L1: Mild diffuse disc bulging with superimposed small left paracentral disc protrusion. Mild ligamentum flavum hypertrophy. No significant spinal canal or foraminal stenosis. L1-2: Diffuse disc bulging. Tiny posterior right paracentral annular fissure. Ligamentum flavum hypertrophy. Mild facet arthropathy. Mild focal spinal canal stenosis. No significant foraminal stenosis. L2-3: Disc height loss with prominent diffuse disc bulging. Superimposed right paracentral/subarticular disc borderline protrusion/extrusion measures 9 mm in the axial plane with effacement of the right lateral recess. Additional left paracentral/subarticular disc extrusion with slight inferior migration suspected on the sagittal view, roughly 8 mm in the axial plane. Ligamentum flavum hypertrophy. Facet arthropathy with an effusion on the right. Effacement of the left lateral recesses also present, however to a lesser degree. Severe focal spinal canal stenosis. Mild bilateral foraminal stenosis. L3-4: Anterolisthesis as above with disc uncovering. Loss of disc height with diffuse disc bulging. Tiny left paracentral annular fissure. Facet arthropathy with effusions. Ligamentum flavum hypertrophy. Mild bilateral foraminal stenosis. Mild focal spinal canal stenosis. L4-5: Diffuse disc bulging. Minimal ligamentum flavum hypertrophy. Facet arthropathy with small effusions.. No significant spinal canal or foraminal stenosis. L5-S1: Severe disc height loss with some disc uncovering related to retrolisthesis as above with small but broad-based posterior disc/osteophyte complex. More prominent anterior disc/osteophyte complexes present. Facet arthropathy. Mild focal spinal canal stenosis. Mild/moderate right and mild left foraminal stenosis. 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 Cervical and thoracic spondylosis not well evaluated. Diverticulosis. MRI/Spine Lumbar (Routine) IMPRESSION: 1. Multilevel spondylosis as above, most notably including posterior disc protr usion/extrusions at L2-L3 superimposed on diffuse disc bulging with associated effacement of the [id number]-left lateral recesses and severe spinal canal stenosis. No high-grade foraminal stenosis. 2. Splenomegaly. 3. Additional description as above. Reading Location: [id number]
== END | disposition home or self-care (01) ==
LOC: MRI 06:32
PROVIDERS: PCP Internal Medicine; Referring Provider Internal Medicine; Visit Provider Internal Medicine
DX: M54.16 Radiculopathy, lumbar region (principal)
CPT/HCPCS: 72148